=== PATIENT | male | born 1980 | race Caucasian/White ===

== ENCOUNTER 2016-10-17 13:32 | Emergency (ER) ==
[2016-10-17 13:33] VITALS: BMI 16.7
--- NOTE | 2016-10-17 13:41 | ED.PDOC ---
General ED Provider: Dr. LUKE MONTAGUE JR Chief Complaint: Sore Throat Stated Complaint: patient states he has had a sore throat. states in the morning it makes him cough up blood. states he looked in his throat and his uvula is swollen. states pain is worse in the morning. [ End ]3 days better after drinking liquids 97.7 93 16 95% 126/97 Time Seen by Physician: 13:39 Mode of Arrival: Walk-In Information Source: Patient Exam Limitations: No limitations Nursing and Triage Documentation Reviewed and Agree: No Review of Systems - Review Of Systems Constitutional: Reports: Malaise Eyes: Reports: No symptoms Ears, Nose, Mouth, Throat: Reports: Throat pain (posterior pharynx and uvula bright red) Respiratory: Reports: Cough Cardiac: Reports: No symptoms GI: Reports: No symptoms : Reports: No symptoms Musculoskeletal: Reports: No symptoms Skin: Reports: No symptoms Neurological: Reports: No symptoms Endocrine: Reports: No symptoms Hematologic/Lymphatic: Reports: No symptoms All Other Systems: Other Past Medical History - Past Medical History Previously Healthy: Yes Endocrine: Reports: None Cardiovascular: Reports: None Respiratory: Reports: Other ( CYSTIC FIBROSIS) Hematological: Reports: None Gastrointestinal: Reports: Pancreatitis Genitourinary: Reports: None Neuro/Psych: Reports: None Musculoskeletal: Reports: None Cancer: Reports: None Other Pertinent Past Medical History: CYSTIC FIBROSIS, PANCREATITIS - Surgical History General Surgical History: Reports: None, Cholecystectomy, Other (LEFT LUNG SURGERY ) - Family History Family History: Reports: None - Social History Smoking Status: Never smoker Hx Substance Use: No Alcohol Screening: Heavy Physical Exam - Physical Exam Appearance: Well-appearing, Thin Pain Distress: Moderate Eyes: PAULO, EOMI, Conjunctiva clear ENT: Ears normal, Nose normal, Erythema Neck: Supple Respiratory: Airway patent, Breath sounds equal, Breath sounds diminished, Rhonchi Cardiovascular: RRR, Pulses normal, No rub, No murmur GI/: Soft, Nontender, No masses, Bowel sounds normal, No Organomegaly Musculoskeletal: Normal strength, ROM intact, No edema, No calf tenderness Skin: Warm, Dry, Normal color Neurological: Sensation intact, Motor intact, Reflexes intact, Cranial nerves intact, Alert, Oriented Psychiatric: Affect appropriate, Mood appropriate Critical Care Note - Critical Care Note Total Time (mins): 0 Course - Course Vital Signs: Temp Pulse Resp BP Pulse Ox 10/17/16 13:33 97.7 F 93 H 16 126/97 H 95 Departure - Departure Time of Disposition: 13:50 Disposition: HOME SELF-CARE Discharge Problem: Sore throat symptom, Streptococcal sore throat Instructions: Pharyngitis (ED), Strep Throat (ED) Condition: Good Pt referred to PMD for follow-up: Yes Additional Instructions: Motrin for discomfort Robitussin AC for cough not relieved by Robitussin DM take all antibiotic if strep positive(strep is positive) Amoxil antibiotic recheck PMD one week may follow with [facility]- if coughing up blood will need chest xray when improved Prescriptions: Amoxicillin [Amoxil] 500 mg PO TID #30 capsule Allergies/Adverse Reactions: Allergies No Known Allergies Allergy (Verified 10/17/16 13:35) Home Medications: Ambulatory Orders Amoxicillin [Amoxil] 500 mg PO TID #30 capsule 10/17/16
[2016-10-17 13:43] VITALS: BP 126/97; TEMP 97.7
== END 2016-10-17 14:50 | disposition home or self-care (01) ==
LOC: ED 13:32
DX: J02.0 Streptococcal pharyngitis (principal); R05 Cough
CPT/HCPCS: 87880; 99283

== ENCOUNTER 2017-08-28 14:57 | Emergency (ER) | payer OTHER ==
[2017-08-28 15:00] VITALS: TEMP 98.7; BMI 17.4
--- NOTE | 2017-08-28 15:08 | ED.PDOC ---
General ED Provider: Dr. JOHAN GANN-ER Chief Complaint: Respiratory Complaint Stated Complaint: my sinuses are draining and im coughing it up Time Seen by Physician: 15:06 Mode of Arrival: Walk-In Information Source: Patient Exam Limitations: No limitations Primary Care Provider: SHAI LOMAS Nursing and Triage Documentation Reviewed and Agree: Yes Reviewed sepsis parameters & appropriate labs ordered?: Yes System Inflammatory Response Syndrome: Not Applicable Sepsis Protocol: For patient's 13 years and over: Temp is 96.8 and below OR 101 and greater Pulse >90 BPM Resp >20/minute Acutely Altered Mental Status Are patient's symptoms suggestive of a new infection, such as: -Pneumonia -Skin, Soft Tissue -Endocarditis -UTI -Bone, Joint Infection -Implantable Device -Acute Abdominal Infection -Wound Infection -Meningitis -Blood Stream Catheter Infection -Unknown Respiratory Complaint Exam - Respiratory Complaint/Exam Onset/Duration: 2 weeks Symptoms Are: Still present Timing: Constant Initial Severity: Mild Current Severity: Mild Location: Nose, Chest Character: Reports: Productive cough Aggravating: Reports: URI Alleviating: Reports: None Associated Signs and Symptoms: Reports: URI, Nasal congestion, Sinus discomfort. Denies: Rapid breathing, Dyspnea, Fever, Chills, Chest pain, Pleuritic chest pain, Wheezing, Hemoptysis, Dizziness, Calf pain, Calf swelling , Edema, Hoarseness, Vomiting, Sore throat, Weight loss, Decreased oral intake, Increased thirst, Increased appetite, Increased urination Related History: Reports: Similar episode Home Oxygen Use: No Recent Stress Test: No Recent Echo/LV Function: No Current Antibiotic Use: No Current Asthma Medication Use: No Inadequate Respiratory Effort: No Dysphagia Present: No Stridor Present: No JVD Present: No Accessory Muscle Use: No Retractions: Not Present Diminished Breath Sounds: No Sinus Tenderness: None Grunting Respirations: No Kussmaul Respirations: No Differential Diagnoses: Bronchitis, Sinusitis, URI Review of Systems - Review Of Systems Constitutional: Reports: No symptoms Eyes: Reports: No symptoms Ears, Nose, Mouth, Throat: Reports: Nose discharge Respiratory: Reports: Cough Cardiac: Reports: No symptoms GI: Reports: No symptoms : Reports: No symptoms Musculoskeletal: Reports: No symptoms Skin: Reports: No symptoms Neurological: Reports: No symptoms Endocrine: Reports: No symptoms Hematologic/Lymphatic: Reports: No symptoms All Other Systems: Reviewed and Negative Past Medical History - Past Medical History Previously Healthy: Yes Endocrine: Reports: None Cardiovascular: Reports: None Respiratory: Reports: Other ( CYSTIC FIBROSIS) Hematological: Reports: None Gastrointestinal: Reports: Pancreatitis Genitourinary: Reports: None Neuro/Psych: Reports: None Musculoskeletal: Reports: None Cancer: Reports: None Other Pertinent Past Medical History: CYSTIC FIBROSIS, PANCREATITIS - Surgical History General Surgical History: Reports: None, Cholecystectomy, Other (LEFT LUNG SURGERY ) - Family History Family History: Reports: None - Social History Smoking Status: Never smoker Hx Substance Use: No Alcohol Screening: Occasionally Physical Exam - Physical Exam Appearance: Well-appearing, No pain distress, Well-nourished Eyes: PAULO, EOMI, Conjunctiva clear ENT: Ears normal, Oropharynx normal, Rhinorrhea Neck: Supple Respiratory: Rhonchi Cardiovascular: RRR GI/: Soft, Nontender, No masses, Bowel sounds normal, No Organomegaly Musculoskeletal: Normal strength, ROM intact, No edema, No calf tenderness Skin: Warm, Dry, Normal color Neurological: Sensation intact, Motor intact, Reflexes intact, Cranial nerves intact, Alert, Oriented Psychiatric: Affect appropriate, Mood appropriate Critical Care Note - Critical Care Note Total Time (mins): 0 Course - Course Vital Signs: Temp Pulse Resp BP Pulse Ox 08/28/17 14:58 98.7 F 76 16 145/100 H 98 Departure - Departure Time of Disposition: 15:08 Disposition: HOME SELF-CARE Discharge Problem: Bronchitis Sinusitis Qualifiers: Sinusitis location: unspecified location Chronicity: acute Recurrence: non- recurrent Qualified Code(s): J01.90 - Acute sinusitis, unspecified Instructions: Acute Bronchitis (ED) Condition: Good Pt referred to PMD for follow-up: Yes IPMP verified?: No Additional Instructions: augmentin 875mg bid x 10 days --tessalon perles 200mg tid prn cough 30---f/u with pcp if not better in 72hrs==get bp rechecked Allergies/Adverse Reactions: Allergies No Known Allergies Allergy (Verified 08/28/17 15:00) Home Medications: Ambulatory Orders 1 [No Reported Medications] 08/28/17 Disposition Discussed With: Patient
[2017-08-28 15:18] VITALS: BP 142/80
== END 2017-08-28 15:16 | disposition home or self-care (01) ==
LOC: ED 14:57
DX: J40 Bronchitis, not specified as acute or chronic (principal); J01.90 Acute sinusitis, unspecified; E84.9 Cystic fibrosis, unspecified
CPT/HCPCS: 99282

== ENCOUNTER 2018-03-09 15:37 | Outpatient (CLI) ==
--- NOTE | 2018-03-09 16:20 | DI ---
EXAM: Three views of the right hand. History: Right hand pain. Findings: No acute fracture or dislocation. No abnormal calcifications or radiopaque foreign bodies . Joint spaces are preserved. Impression: No acute osseous abnormality
== END 2018-03-09 15:38 | disposition home or self-care (01) ==
LOC: RAD 15:37
PROVIDERS: ATTEND Physician Assistant
DX: M79.641 Pain in right hand (principal)

== ENCOUNTER 2018-11-16 10:34 | Observation (INO) ==
--- NOTE | 2018-11-16 11:39 | ED.PDOC ---
General ED Provider: Dr. JOHAN THOMSON Chief Complaint: Abdominal Pain Stated Complaint: CC: Severe Abdominal Pain. Hx Pancreatitis. Recently has been binge drinking of etoh. Has had progresive worsening pain over 2 days. States started drinking ETON 2 MO ago with excessive consumption (Beer and Vodka -1 pint daily). Had prev quit smoking cigarettes but has resumed smoking a pack of cigarettes per day for past 2 MO. Has been emotionally stressed as his Ex fiannce left with his childred 2 mo ago. Hx of alpha 1 antitripsin deficiency prev on treatment which he can not get due to insurance coverage. Time Seen by Physician: 11:30 Mode of Arrival: Walk-In Information Source: Patient Exam Limitations: Clinical condition Nursing and Triage Documentation Reviewed and Agree: Yes Does patient meet sepsis criteria?: No System Inflammatory Response Syndrome: Not Applicable Sepsis Protocol: For patient's 13 years and over: Temp is 96.8 and below OR 101 and greater Pulse >90 BPM Resp >20/minute Acutely Altered Mental Status Are patient's symptoms suggestive of a new infection, such as: -Pneumonia -Skin, Soft Tissue -Endocarditis -UTI -Bone, Joint Infection -Implantable Device -Acute Abdominal Infection -Wound Infection -Meningitis -Blood Stream Catheter Infection -Unknown GI Complaint Exam - Abdominal Pain Complaint/Exam Onset: Gradual Duration: 3 days Symptoms Are: Worse Timing: Constant (with paroxysmal worsening) Initial Severity: Moderate Current Severity: Severe Location of Pain: Diffuse Radiates To: Reports: Flank, LLQ, RLQ Character: Reports: Aching, Cramping Aggravating: Reports: Movement Alleviating: Reports: None Associated Signs and Symptoms: Reports: Diaphoresis, Back pain Related History: Reports: Similar episode AAA Risk Factors: Reports: None Cardiac Risk Factors: Reports: None Testicular Torsion Risk Factors: Reports: None Surgical Obstruction Risk Factors: Reports: None Related Surgical History: Reports: None Abdominal Findings: Present: Other (Tenderness/guarding) Review of Systems - Review Of Systems Constitutional: Reports: No symptoms Eyes: Reports: No symptoms Ears, Nose, Mouth, Throat: Reports: No symptoms Respiratory: Reports: No symptoms Cardiac: Reports: No symptoms GI: Reports: Abdomen distended, Abdominal pain : Reports: No symptoms Musculoskeletal: Reports: No symptoms Skin: Reports: No symptoms Neurological: Reports: No symptoms Endocrine: Reports: No symptoms Hematologic/Lymphatic: Reports: No symptoms All Other Systems: Reviewed and Negative Past Medical History - Past Medical History Previously Healthy: Yes Endocrine: Reports: None Cardiovascular: Reports: None Respiratory: Reports: Other ( CYSTIC FIBROSIS) Hematological: Reports: None Gastrointestinal: Reports: Pancreatitis Genitourinary: Reports: None Neuro/Psych: Reports: None Musculoskeletal: Reports: None Cancer: Reports: None Other Pertinent Past Medical History: CYSTIC FIBROSIS, PANCREATITIS - Surgical History General Surgical History: Reports: None, Cholecystectomy, Other (LEFT LUNG SURGERY ) - Family History Family History: Reports: None - Social History Smoking Status: Current every day smoker Hx Substance Use: No Alcohol Screening: Heavy - Immunizations Tetanus Shot up to Date: No (UNKNOWN) Physical Exam - Physical Exam Appearance: Ill-appearing, Thin Ill-appearing: Moderate Pain Distress: Severe Eyes: PAULO, EOMI, Conjunctiva clear ENT: Ears normal, Nose normal, Oropharynx normal Neck: Supple Respiratory: Airway patent, Breath sounds clear, Breath sounds equal, Respirations nonlabored Cardiovascular: RRR, Pulses normal, No rub, No murmur GI/: Soft, Tender, Bowel sounds hyperactive Musculoskeletal: Normal strength, ROM intact, No edema, No calf tenderness Skin: Warm, Dry, Normal color Neurological: Sensation intact, Motor intact, Reflexes intact, Cranial nerves intact, Alert, Oriented Psychiatric: Affect appropriate Interpretation - Radiology Interpretation Radiology Results: Positive Exam Interpreted: CT Scan (Abdomen/pelvis-peripancreatic inflamation and edema) - EKG Interpretation Time of EKG #1: 12:43 Rate: Normal ST Segment: Other (RBBB) Critical Care Note - Critical Care Note Total Time (mins): 120 Course - Course Hematology/Chemistry: 11/16/18 12:20 11/16/18 12:20 Orders, Labs, Meds: Lab Review 11/16/18 11/16/18 11/16/18 12:00 12:20 12:20 WBC 10.89 H RBC 4.90 Hgb 18.1 H Hct 49.3 MCV 100.6 H MCH 36.9 H MCHC 36.7 H RDW Coeff of Chris 13.8 Plt Count 221 Immature Gran % (Auto) 0.3 Neut % (Auto) 82.8 Lymph % (Auto) 10.7 [place] % (Auto) 4.9 Eos % (Auto) 0.8 Baso % (Auto) 0.5 Immature Gran # (Auto) 0.0 Neut # (Auto) 9.0 H Lymph # (Auto) 1.2 [place] # (Auto) 0.5 Eos # (Auto) 0.1 Baso # (Auto) 0.1 PT INR APTT Sodium 139.8 Potassium 3.61 Chloride 104.4 Carbon Dioxide 25.3 Anion Gap 13.71 BUN 2.4 L Creatinine 0.50 L Estimated GFR (MDRD) 184.00 BUN/Creatinine Ratio 4.80 Glucose 109.8 H Lactic Acid Calcium 9.01 Magnesium 1.82 Total Bilirubin 1.01 AST 74.8 H ALT 57.1 H Alkaline Phosphatase 126.3 H Total Creatine Kinase 90.1 Troponin I < 0.012 Total Protein 7.13 Albumin 4.17 Globulin 2.96 Albumin/Globulin Ratio 1.40 Amylase 222.4 H Lipase 2882.1 H Urine Color Urine Clarity Urine pH Ur Specific [place] Urine Protein Urine Glucose (UA) Urine Ketones Urine Blood Urine Nitrite Urine Bilirubin Urine Urobilinogen Ur Leukocyte Esterase Urine Opiates Screen Ur Oxycodone Screen Urine Methadone Screen Ur Propoxyphene Screen Ur Barbiturates Screen U Tricyclic Antidepress Ur Phencyclidine Scrn Ur Amphetamine Screen U Methamphetamines Scrn U Benzodiazepines Scrn Urine Cocaine Screen U Cannabinoids Screen Plasma/Serum Alcohol 11/16/18 11/16/18 11/16/18 12:20 12:20 12:23 WBC RBC Hgb Hct MCV MCH MCHC RDW Coeff of Chris Plt Count Immature Gran % (Auto) Neut % (Auto) Lymph % (Auto) [place] % (Auto) Eos % (Auto) Baso % (Auto) Immature Gran # (Auto) Neut # (Auto) Lymph # (Auto) [place] # (Auto) Eos # (Auto) Baso # (Auto) PT 10.7 INR 1.07 APTT 24.1 Sodium Potassium Chloride Carbon Dioxide Anion Gap BUN Creatinine Estimated GFR (MDRD) BUN/Creatinine Ratio Glucose Lactic Acid 1.41 Calcium Magnesium Total Bilirubin AST ALT Alkaline Phosphatase Total Creatine Kinase Troponin I Total Protein Albumin Globulin Albumin/Globulin Ratio Amylase Lipase Urine Color Urine Clarity Urine pH Ur Specific [place] Urine Protein Urine Glucose (UA) Urine Ketones Urine Blood Urine Nitrite Urine Bilirubin Urine Urobilinogen Ur Leukocyte Esterase Urine Opiates Screen Negative Ur Oxycodone Screen Negative Urine Methadone Screen Negative Ur Propoxyphene Screen Negative Ur Barbiturates Screen Negative U Tricyclic Antidepress Negative Ur Phencyclidine Scrn Negative Ur Amphetamine Screen Negative U Methamphetamines Scrn Negative U Benzodiazepines Scrn Positive Urine Cocaine Screen Negative U Cannabinoids Screen Positive Plasma/Serum Alcohol 11/16/18 11/16/18 12:23 14:35 WBC RBC Hgb Hct MCV MCH MCHC RDW Coeff of Chris Plt Count Immature Gran % (Auto) Neut % (Auto) Lymph % (Auto) [place] % (Auto) Eos % (Auto) Baso % (Auto) Immature Gran # (Auto) Neut # (Auto) Lymph # (Auto) [place] # (Auto) Eos # (Auto) Baso # (Auto) PT INR APTT Sodium Potassium Chloride Carbon Dioxide Anion Gap BUN Creatinine Estimated GFR (MDRD) BUN/Creatinine Ratio Glucose Lactic Acid Calcium Magnesium Total Bilirubin AST ALT Alkaline Phosphatase Total Creatine Kinase Troponin I Total Protein Albumin Globulin Albumin/Globulin Ratio Amylase Lipase Urine Color Yellow Urine Clarity Clear Urine pH 7.5 Ur Specific [place] 1.010 Urine Protein Negative Urine Glucose (UA) Negative Urine Ketones Negative Urine Blood Negative Urine Nitrite Negative Urine Bilirubin Negative Urine Urobilinogen 0.2 Ur Leukocyte Esterase Negative Urine Opiates Screen Ur Oxycodone Screen Urine Methadone Screen Ur Propoxyphene Screen Ur Barbiturates Screen U Tricyclic Antidepress Ur Phencyclidine Scrn Ur Amphetamine Screen U Methamphetamines Scrn U Benzodiazepines Scrn Urine Cocaine Screen U Cannabinoids Screen Plasma/Serum Alcohol < 10.0 Orders Category Date Time Status EKG-(ED ONLY) Stat CARDIO 11/16/18 12:36 Completed NPO REMINDER: IMAGING ONCE CARE 11/16/18 13:27 Completed IV [ED IV/MEDIPORT/POWERPORT] .ONCE EMERGENCY 11/16/18 11:50 Active ALCOHOL LEVEL [BLOOD ALCOHOL] Stat LAB 11/16/18 14:35 Completed AMYLASE Stat LAB 11/16/18 12:20 Completed BLOOD CULTURE (ED ONLY) Stat LAB 11/16/18 12:20 Received CBC W/ AUTO DIFF Stat LAB 11/16/18 12:20 Completed CMP [COMPREHENSIVE METABOLIC PANEL] Stat LAB 11/16/18 12:20 Completed CREATINE KINASE Stat LAB 11/16/18 12:20 Completed HEPATITIS PANEL, ACUTE Stat LAB 11/16/18 12:20 Received LACTIC ACID Stat LAB 11/16/18 12:20 Completed LIPASE Stat LAB 11/16/18 12:20 Completed MAGNESIUM Stat LAB 11/16/18 12:20 Completed PARTIAL THROMBOPLASTIN TIME Stat LAB 11/16/18 12:20 Completed PT WITH INR Stat LAB 11/16/18 12:20 Completed TROPONIN I Stat LAB 11/16/18 12:00 Completed UA [URINALYSIS C & S IF INDICATED] Stat LAB 11/16/18 12:23 Completed URINE DRUG SCREEN (RAPID FOR ED) [DRUG SCREEN, URINE, LAB 11/16/18 12:23 Completed RAPID] Stat 0.9 % Sodium Chloride [Saline Flush] MEDS 11/16/18 11:50 Active 1 syr IVF PRN PRN Hydromorphone HCl [Dilaudid 1 mg/ml Syringe] MEDS 11/16/18 12:02 Discontinued 1 mg IM ONCE STA Hydromorphone HCl [Dilaudid 1 mg/ml Syringe] MEDS 11/16/18 12:37 Discontinued 1 mg IVP ONCE STA Hydromorphone HCl [Dilaudid 1 mg/ml Syringe] MEDS 11/16/18 13:24 Discontinued 2 mg IVP ONCE STA Ondansetron HCl/Pf [Zofran 4 mg/2 ml] MEDS 11/16/18 12:02 Discontinued 4 mg IVP ONCE STA Ondansetron HCl/Pf [Zofran 4 mg/2 ml] MEDS 11/16/18 13:28 Discontinued 4 mg IVP ONCE STA Sodium Chloride 0.9% [Sodium Chloride] 1,000 ml MEDS 11/16/18 11:[address] ABDOMEN/PELVIS W CONTRAST Stat RADS 11/16/18 13:27 Completed Medications Generic Name Dose Route Start Last Admin Trade Name Freq PRN Reason Stop Dose Admin Sodium Chloride 1,000 mls @ 125 mls/hr 11/16/18 11:58 11/16/18 12:30 Sodium Chloride IV 11/16/18 19:57 125 mls/hr ONCE ONE Administration Sodium Chloride 1 syr 11/16/18 11:50 11/16/18 12:31 Saline Flush IVF 1 syr PRN PRN Administration To flush IV Discontinued Medications Generic Name Dose Route Start Last Admin Trade Name Freq PRN Reason Stop Dose Admin Hydromorphone HCl 1 mg 11/16/18 12:02 11/16/18 12:38 Dilaudid 1 Mg/Ml Syringe IM 11/16/18 12:03 Not Given ONCE STA Hydromorphone HCl 1 mg 11/16/18 12:37 11/16/18 12:38 Dilaudid 1 Mg/Ml Syringe IVP 11/16/18 12:38 1 mg ONCE STA Administration Hydromorphone HCl 2 mg 11/16/18 13:24 11/16/18 13:39 Dilaudid 1 Mg/Ml Syringe IVP 11/16/18 13:25 2 mg ONCE STA Administration Ondansetron HCl 4 mg 11/16/18 12:02 11/16/18 12:31 Zofran 4 Mg/2 Ml IVP 11/16/18 12:03 4 mg ONCE STA Administration Ondansetron HCl 4 mg 11/16/18 13:28 11/16/18 13:42 Zofran 4 Mg/2 Ml IVP 11/16/18 13:29 4 mg ONCE STA Administration Vital Signs: Temp Pulse Resp BP Pulse Ox 11/16/18 14:37 164/114 H 11/16/18 10:34 97.8 F 112 H 20 182/128 H 97 Departure - Departure Time of Disposition: 14:45 (disc with pt. /nakitaner) Disposition: PLACED OBSERVATION Discharge Problem: Acute pancreatitis, Chronic alcoholic liver disease, [id number] deficiency Condition: Stable Pt referred to PMD for follow-up: Yes IPMP verified?: No Additional Instructions: STOP ALCOHOL CONSUMPTION Discussed with Dr Myers who will accept for 23 hr observation Allergies/Adverse Reactions: Allergies No Known Allergies Allergy (Verified 08/28/17 15:00) Home Medications: Ambulatory Orders 1 [No Reported Medications] 08/28/17 Disposition Discussed With: Patient, Family, Other (Dr Ash who will accept patient for admission )
[2018-11-16] MEDS ORDERED: FUL-GLO OP STA (11:40)
[2018-11-16] MEDS ORDERED: SODIUM CHLORIDE 1,000 ML IV ONE (11:58)
[2018-11-16] MEDS ORDERED: ZOFRAN 4 MG/2 ML IVP STA ×2 (12:02→13:28)
[2018-11-16] MEDS ORDERED: DILAUDID 1 MG/ML SYRINGE IM STA (12:02)
[2018-11-16] MEDS ORDERED: DILAUDID 1 MG/ML SYRINGE IVP STA ×2 (12:37→13:24)
--- NOTE | 2018-11-16 14:28 | CT ---
EXAM: CT of the abdomen pelvis with contrast History: Abdominal pain. Comparison: CT abdomen pelvis 11/04/2015 Technique: Multiplanar CT images through the abdomen pelvis were obtained without the administration of IV contrast Findings: Motion artifact compromises image quality. Lung bases are clear. No acute osseous abnormalities. The liver is severely fatty. Status post cholecystectomy. There is moderate peripancreatic inflamma tion and edema of the pancreatic parenchyma. There is fluid seen tracking along the left anterior pa rarenal fascia and along the body of the stomach. No well-defined peripancreatic fluid collections a re seen at this time. No obvious renal masses are again fine within limitations of the motion are no hydronephrosis. Adrenal glands are unremarkable. No bowel obstruction. Colonic diverticulosis. T here is mild wall thickening involving the left side of the colon but is not well distended. The paul endix is not dilated or inflamed. Prostate is not enlarged. Bladder is mild to moderately distended . There is no bladder wall thickening. No pathologically enlarged lymph nodes. No abdominal aortic aneurysm. Impression: 1. Acute pancreatitis which is moderate in degree. No peripancreatic fluid collections identified a t this time. 2. Severe fatty infiltration of the liver. 3. Mild wall thickening involving the left side of the colon could be due to incomplete distension, reactive from pancreatitis or a mild colitis. 4. Colonic diverticulosis
[2018-11-16] MEDS ORDERED: DILAUDID 1 MG/ML SYRINGE IVP PRN (15:16)
[2018-11-16] MEDS ORDERED: ZOFRAN 4 MG/2 ML IVP PRN (15:16)
[2018-11-16] MEDS ORDERED: CATAPRES PO STA (15:50)
[2018-11-16 16:12] VITALS: BMI 16.0
--- NOTE | 2018-11-16 17:10 | PCM ---
- Chief Complaint Chief Complaint: Abdominal pain, pancreatitis. 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 Powell. Reported severe abdominal pain, hx of pancreatitis, recently binge drinking alcohol. Worsening pain , progressively over last 48 hours. Drinking ETOH 20 months ago 8 peer and 1 pint vodka daily. Resumed smoking at the same time. David has left with his 2 children 2 month ago. HIstory of ?Cystic fibrosis w/ u for this historically but then he has had children so he was told at one point likely not. He has suspected alpha 1 antitrypsin and notes he was treated for this per ED and then could not afford it. Recurrent pneumothorax historically. Symptoms worsening over 3 days, bilateral flank pain, bilateral LQ pain rated at 9-10/10. NO history of CHF. Severe pain diffuse pain. He has had pancreatitis before. No Vomiting, no diarrhea, mild nausea. Tenderness, guarding abdomen. Temp in Er measured at 97.8, 97.9 on floor. Pulse 112 in Er and 54 on the floor. BP 182/128 and 164/114. RR 20. O2 98% on RA. 5 ' 11" 117 lb. CBC showed wbc 10.89, RBC 4.90, hgb 18.1, plt 221. Coags pt 10.7, inf 1.07, aptt 24.1, Chemistry showed sodium 139.8, K+ 3.61, cl 104.4, BUN 2.4, Cr 0.5. Glucose 109.8. Lactic acid 1.41. AST 74.8, alt 57.1, calcium 9.01, seth 222.4, lip 2882.1. Urine showed normal, SG 1.010. UDS showed + benzo, + cannabinoids. He has plasma ETOH <10.0. I have requested LDH. I have also requested fluids to be hung w/ LR with MVI at 5ml/kg/hour. CT Abd pelvis with contrast: Acute pancreatitis moderate in degree, no peripanacreatic fluid collections at this time. Severe fatty liver, mild wall thickening involving left side ofthe colon ?distension reactive from pancreatitis or mild colitis. Colonic diverticulosis w/o mention of diverticulitis. Nurses triage assessment reviewed. In room SCU 3 patient with mother Patricia. No known history of elevated BP. Chronic Anxiety, chronic panic attack. No history of IV drug use. He has used marijuana daily for years. Stress is up, runs [employer], he is a very anxious barney. He has been using xanax off the street, has had numerous panic attacks. Self medicates w/ benzo and ETOH. He needs a little and has not had any in 1 week. Normally uses valium/klonopin. He has not used anything in at least 2 weeks. using CBD gummies helping with anxiety. Last ETOH last night. He has never had DT historically. Pain rated at 10/10 mid abdomen. No ETOH since last night, no tobacco since this am. He needs something for sleep, needs something for pain and he feels the dilaudid 2 q 3 is not enough. I do not want to use any NSAIDS for now. He has no history of HTN. He has used THC daily to eat as he is so small. He notes no desired intake of food. Started as a teen stopped for like 10 years and then started again. Panic prominently by history. He is tolerating water okay but sprite causes his stomach to hurt more. Nurse called 16:32 and left message for pain meds. I saw patient from 17:30-18:30. Mother in room. Bp checked again during encounter 180/102. Supposed to be on creon. NO insurance at present. - Review of Systems Constitutional: weakness, fatigue, loss of appetite. No: fever, chills, sweats , other Eyes: other (glasses). No: blurred vision, double-vision, discharge, itching, pain, redness, photophobia Ears: No: pain, bleeding, drainage, ringing, hearing loss, other Nose: No: bleeding, congestion, discharge, other Throat: No: pain, swelling, voice change, other Mouth: No: bleeding, pain, swelling, other Respiratory: No: cough, shortness of air, wheeze, hemoptysis, pain with breathing, other Cardiovascular: No: chest pain, left arm pain, diaphoresis, PND, orthopnea, edema, palpitations, syncope, other Gastrointestinal: abdominal pain, nausea. No: vomiting, diarrhea, melena, hematemesis, hematochezia, dysphagia, constipation Genitourinary: flank pain. No: dysuria, hematuria, frequency, incontinence, penile discharge, testicular pain, testicular swelling Neurological: headache, dizziness. No: seizure, numbness, weakness, speech difficulty, problems with walking, tremor, fainting, other Musculoskeletal: No: pain, swelling in joints, other Skin: other (numerous tattoo). No: rash, pruritus, lacerations, wounds, bruising Immunology: No: hives, itching, frequent infections, difficulty healing, other Hematology: No: easy bruising, easy bleeding, swollen glands, other Endocrine: No: weight changes, cold intolerance, heat intolerance, excessive thirst, excessive hunger, polyuria, other Psychiatric: depression, anxiety, sleeplessness Habits: tobacco use, substance use, alcohol use - Past Medical History Past Medical History: Alpha 1 antitrypsin deficiency, ?Cystic fibrosis, collapsed lung repeated, left lung surgery, s/p Cholecystectomy, Smoker, ETOH abuse, marijuana abus, benzo use. - Past Surgical History Past Surgical History: Cholecystectomy, lung surgery left, - Allergies Allergies/Adverse Reactions: Allergies Allergy/AdvReac Type Severity Reaction Status Date / Time No Known Allergies Allergy Verified 08/28/17 15:00 - Medications Medications: Medications Generic Name Dose Route Start Last Admin Trade Name Freq PRN Reason Stop Dose Admin Hydromorphone HCl 2 mg 11/16/18 15:16 Dilaudid 1 Mg/Ml Syringe IVP Q4HR PRN Abdominal Pain Sodium Chloride 1,000 mls @ 125 mls/hr 11/16/18 11:58 11/16/18 12:30 Sodium Chloride IV 11/16/18 19:57 125 mls/hr ONCE ONE Administration Ondansetron HCl 4 mg 11/16/18 15:16 Zofran 4 Mg/2 Ml IVP Q6H PRN Nausea and vomiting Sodium Chloride 1 syr 11/16/18 11:50 11/16/18 12:31 Saline Flush IVF 1 syr PRN PRN Administration To flush IV - Family History Past Family History: Lung cancer. Father on anticoagulants. Mother triple bypass, AVM brain aneursym., aortic aneursym, CAD. 2 children healthy. - Social History Past Social History: Runs [employer], numerous tattoo. LIves at home with roomate jyothi and 17 yo son. - Body Composition Height: 5 ft 11 in Weight: 115 lb 1.301 oz Body Mass Index (BMI): 16.0 - Physical Examination HEENT: Constitutional: Appearance-acute distress, pain response, Consistent with stated age. Orientation- Oriented x 3, alert Build and Nutrition-[Underweight] General- Patient is pleasant and cooperative with the interview and exam. Grabbing at stomach. Noting pain. Numerous tattoo. Integumentary: General-No rashes, ulcers or lesions. Palpation- Normal skin moisture/turgor. Skin is warm to touch, appropriate. Capillary refill is normal bilateral Upper and lower extremity. Numerous Tattoo. Head/Neck: Head- normocephalic and atraumatic. Neck- without visible/palpable lumps or pulsations. Palpation- No bony tenderness about head/neck along frontal, occipital, temporal, parietal, mastoid, jawline, zygoma, orbit or any other location. NO temporal artery tenderness. No TMJ tenderness. Neck Supple. Thyroid-No thyromegaly, no nodules Eye: Bilaterally PERRLA, EOMI. No discharge. Upper and lower eyelids are normal. Sclera/conjunctiva normal without discharge. Cornea is normal and clear. Lens is normal. Eyeball appears normal. No ciliary flushing, no conjunctival injection. ENMT: Pinna- normal without tenderness or erythema. External auditory canal Left- normal without erythema or discharge, no excessive cerumen. External auditory canal Right-normal without erythema or discharge, no excessive cerumen. TM left- Marin/pearly, normal light reflex and anatomy TM Right- Marin/ pearly, normal light reflex and anatomy Hearing Assessment-normal to conversational speech. Nose and sinus- No sinus tenderness along frontal/ maxillary region. External appearance normal and midline. Nares- bilateral quiet airflow, no discharge. Nasal mucosa- No bleeding noted and no ulcerations observed. [place], moist. Turbinates non boggy. Lips- normal color, moist without cracks/lesions Oral Cavity/Palate- hard/soft palate intact without lesions, oral mucosa pink and moist. Dentition assessed [poor] . Tongue normal midline. Oropharynx- no pharyngeal erythema, Uvula midline. No post nasal drip. No exudate. Salivary glands- Non tender to palpation CHEST/LUNG: Inspection- symmetric chest wall no pectus deformity. Normal effort , no distress, no use of accessory muscles. Palpation- nontender sternum, ribline. No abnormal pulsations. Auscultation- Breath sounds normal throughout all lung finnegan. Normal tracheal sounds, Normal bronchial sounds overlying sternum, Bronchovessicular sounds normal between scapulae posteriorly, Normal vessicular breath sounds heard throughout periphery. Lungs are clear today. Adventitious sounds- No wheezes, rales, rhonchi. CARDIOVASCULAR: Carotid artery- normal, no bruits or abnormal pulsations. Jugular vein- no pulsations. Palpation/Percussion- Normal PMI, no palpable thrill Auscultation- Regular rate and rhythm. No murmur noted in sitting, supine positions. Extremities- no digital clubbing, cyanosis, edema, increased warmth. ABDOMEN: Inspection- normal and no visible pulsations. Normal contour. Auscultation- Bowel sounds normal, no abdominal bruits. Palpation/Percussion- firm tender mid epigastric, mildly throughout, rebound tenderness, rigidity ( guarding), no jar tenderness, no masses. Liver-no hepatomegaly, Spleen no splenomegaly, Hernias- none. Rectal not examined. Peripheral Vascular: Upper extremity Left- Normal temperature with pink nailbeds and no ulcerations. Upper extremity Right- Normal temperature with pink nailbeds and no ulcerations. Lower extremity- Normal temperature with pink nailbeds and no ulcerations. DP pulses 2+ bilaterally. Pedal hair intact. Normal capillary refill. Edema- No edema. Musculoskeletal: Generalized-No generalized swelling or edema of extremities, no digital clubbing or cyanosis, neurovascularly intact all four extremities. Upper extremity- Symmetrical posture. No visible deformity. Normal sensation along medial and lateral upper extremity proximally and distally. NO tenderness overlying shoulder, lateral/medial epicondyle. Talent Development Manager 5/5 and strength 5/5 bilateral UE. Elbow palpated, no tenderness overlying olecranon. Normal supination, pronation to active/passive ROM and to resisted rotation. Bicep insertion/tricep insertion appear normal without obvious pathology. Rotator cuff evaluated and intact. Normal wrist ROM bilaterally. Normal hand movement, intrinsic muscles of hands normal. No tenderness to palpation of hands/wrists/ elbows. Lower extremity- Hip: Not tender to palpation, no pain, no swelling, edema or erythema of surrounding tissue, normal strength and tone. Normal appearing hip ROM bilaterally without pain. Knee: Knee ROM normal. No tenderness overlying trochanters, no tenderness about patella, quad tendon, patellar tendon. No tenderness at tibial tuberosity. Ankle: normal ROM not tender to palpation along medial/lateral malleolus. Foot: Normal movement of toes, no tenderness bilateral feet/toes. Normal foot type. Spine/Ribs- No deformities, masses or tenderness, no known fractures, normal strength, Normal ROM. Normal stability No tenderness along C/T/L spine. Normal appearing ROM about spine. Neurological: General- Moves all 4 extremities symmetrically. Symmetrical face and body posture. Cranial nerves- individually evaluated II-XII and intact. PERRLA, Normal EOMI, visual/special senses appear intact, Face is symmetrical and normal sensation/movement, normal tongue, normal strength/posture of neck musculature. Reflexes- intact with DTR 2+ patellar, Achilles, bicep, brachial, tricep. Ankle clonus normal with 2 beats. Strength- 5/5 bilateral UE and LE. Soft touch- intact bilateral UE and LE. Temperature sensation- intact bilateral UE and LE. Neuropsych: Oriented- Person, place, time. (AAOx3), Mood/affect- Anxious. Not diaphoretic. Able to articulate well. Speech-Normal speech, normal rate, normal tone, normal use of language, volume and coherence. Thought content- normal with ability to perform basic computations and apply abstract thought/reason. Associations- intact, no SI/HI, no hallucinations, delusions, obsessions. Judgment/insight- Appropriate. Memory-Recall intact, remote and recent memory intact. Knowledge- Age appropriate fund of knowledge, concentration and attention span normal. Lymphatic: Head/Neck- normal size and non tender to palpation. Axillary- normal size and non tender to palpation. Femoral and Inguinal- normal size and non tender to palpation. - Lab/Tests/Diagnostic Imaging Lab/Tests/Diagnostic Imaging: Laboratory Last Values WBC 10.89 K/ul (4.2-10.2) H 11/16/18 12:20 RBC 4.90 10^6/ul (4.70-6.10) 11/16/18 12:20 Hgb 18.1 g/dl (14.0-18.0) H 11/16/18 12:20 Hct 49.3 % (42.0-52.0) 11/16/18 12:20 MCV 100.6 fl (80.0-94.0) H 11/16/18 12:20 MCH 36.9 pg (27.0-31.0) H 11/16/18 12:20 MCHC 36.7 (31.8-35.4) H 11/16/18 12:20 RDW Coeff of Chris 13.8 % (11.6-14.8) 11/16/18 12:20 Plt Count 221 10^3/uL (140-440) 11/16/18 12:20 Immature Gran % (Auto) 0.3 % (0.0-5.0) 11/16/18 12:20 Neut % (Auto) 82.8 11/16/18 12:20 Lymph % (Auto) 10.7 (10.0-50.0) 11/16/18 12:20 Stanton % (Auto) 4.9 (0-10) 11/16/18 12:20 Eos % (Auto) 0.8 % (0.0-7.0) 11/16/18 12:20 Baso % (Auto) 0.5 % (0.0-3.0) 11/16/18 12:20 Immature Gran # (Auto) 0.0 (0.0-1.0) 11/16/18 12:20 Neut # (Auto) 9.0 K/ul (2.0-6.9) H 11/16/18 12:20 Lymph # (Auto) 1.2 K/uL (0.60-3.4) 11/16/18 12:20 Stanton # (Auto) 0.5 K/uL (0.4-2.0) 11/16/18 12:20 Eos # (Auto) 0.1 K/ul (0.0-0.7) 11/16/18 12:20 Baso # (Auto) 0.1 K/uL (0-0.2) 11/16/18 12:20 PT 10.7 SEC (9.3-11.0) 11/16/18 12:20 INR 1.07 SI (0.0-3.9) 11/16/18 12:20 APTT 24.1 SEC (23.9-40.0) 11/16/18 12:20 Sodium 139.8 mmol/L (134.5-145) 11/16/18 12:20 Potassium 3.61 mmol/L (3.5-5.1) 11/16/18 12:20 Chloride 104.4 mmol/L (98-107) 11/16/18 12:20 Carbon Dioxide 25.3 mmol/L (22-30.0) 11/16/18 12:20 Anion Gap 13.71 11/16/18 12:20 BUN 2.4 mg/dL (9-20) L 11/16/18 12:20 Creatinine 0.50 mg/dL (0.60-1.10) L 11/16/18 12:20 Estimated GFR (MDRD) 184.00 mL/min 11/16/18 12:20 BUN/Creatinine Ratio 4.80 11/16/18 12:20 Glucose 109.8 mg/dL (74-106) H 11/16/18 12:20 Lactic Acid 1.41 mmol/L (0.7-2.1) 11/16/18 12:20 Calcium 9.01 mg/dL (8.4-10.2) 11/16/18 12:20 Magnesium 1.82 mg/dL (1.6-2.3) 11/16/18 12:20 Total Bilirubin 1.01 mg/dL (0.2-1.3) 11/16/18 12:20 AST 74.8 U/L (17-59) H 11/16/18 12:20 ALT 57.1 U/L (0-50) H 11/16/18 12:20 Alkaline Phosphatase 126.3 U/L (38-126) H 11/16/18 12:20 Total Creatine Kinase 90.1 U/L (55-170) 11/16/18 12:20 Troponin I < 0.012 ng/ml (0.0000-0.120) 11/16/18 12:00 Total Protein 7.13 g/dL (6.3-8.2) 11/16/18 12:20 Albumin 4.17 g/dL (3.5-5.0) 11/16/18 12:20 Globulin 2.96 11/16/18 12:20 Albumin/Globulin Ratio 1.40 11/16/18 12:20 Amylase 222.4 U/L (30-110) H 11/16/18 12:20 Lipase 2882.1 U/L (23-300) H 11/16/18 12:20 Urine Color Yellow (YELLOW) 11/16/18 12:23 Urine Clarity Clear (CLEAR) 11/16/18 12:23 Urine pH 7.5 (5-9) 11/16/18 12:23 Ur Specific [place] 1.010 (1.005-1.030) 11/16/18 12:23 Urine Protein Negative (NEGATIVE) 11/16/18 12:23 Urine Glucose (UA) Negative (NEGATIVE) 11/16/18 12:23 Urine Ketones Negative (NEGATIVE) 11/16/18 12:23 Urine Blood Negative (NEGATIVE) 11/16/18 12:23 Urine Nitrite Negative (NEGATIVE) 11/16/18 12:23 Urine Bilirubin Negative (NEGATIVE) 11/16/18 12:23 Urine Urobilinogen 0.2 (0.2) 11/16/18 12:23 Ur Leukocyte Esterase Negative (NEGATIVE) 11/16/18 12:23 Urine Opiates Screen Negative (NEGATIVE) 11/16/18 12:23 Ur Oxycodone Screen Negative (NEGATIVE) 11/16/18 12:23 Urine Methadone Screen Negative (NEGATIVE) 11/16/18 12:23 Ur Propoxyphene Screen Negative (NEGATIVE) 11/16/18 12:23 Ur Barbiturates Screen Negative (NEGATIVE) 11/16/18 12:23 U Tricyclic Antidepress Negative (NEGATIVE) 11/16/18 12:23 Ur Phencyclidine Scrn Negative (NEGATIVE) 11/16/18 12:23 Ur Amphetamine Screen Negative (NEGATIVE) 11/16/18 12:23 U Methamphetamines Scrn Negative (NEGATIVE) 11/16/18 12:23 U Benzodiazepines Scrn Positive (NEGATIVE) 11/16/18 12:23 Urine Cocaine Screen Negative (NEGATIVE) 11/16/18 12:23 U Cannabinoids Screen Positive (NEGATIVE) 11/16/18 12:23 Plasma/Serum Alcohol < 10.0 mg/dL (0.0-50.0) 11/16/18 14:35 CT Abd pelvis with contrast: Acute pancreatitis moderate in degree, no peripanacreatic fluid collections at this time. Severe fatty liver, mild wall thickening involving left side ofthe colon ?distension reactive from pancreatitis or mild colitis. Colonic diverticulosis w/o mention of diverticulitis. - Assessment (1) Elevated blood pressure reading Status: Acute Code(s): R03.0 - ELEVATED BLOOD-PRESSURE READING, W/O DIAGNOSIS OF HTN SNOMED Code(s): 36438972 (2) Marijuana use Status: Acute Code(s): F12.90 - CANNABIS USE, UNSPECIFIED, UNCOMPLICATED SNOMED Code(s): 648633042 (3) History of benzodiazepine use Status: Acute Code(s): Z87.898 - PERSONAL HISTORY OF OTHER SPECIFIED CONDITIONS SNOMED Code(s): 351127905 (4) Acute pancreatitis Status: Acute Code(s): K85.9 - ACUTE PANCREATITIS, UNSPECIFIED * DO NOT USE * SNOMED Code(s): 979484442 (5) [id number] deficiency Status: Acute Code(s): E88.01 - [id number] DEFICIENCY SNOMED Code(s ): 32962823 (6) Chronic alcoholic liver disease Status: Acute Code(s): K70.9 - ALCOHOLIC LIVER DISEASE, UNSPECIFIED SNOMED Code(s): 177972160 (7) Elevated hemoglobin Status: Acute Code(s): D58.2 - OTHER HEMOGLOBINOPATHIES SNOMED Code(s): 585363820 - Plan Plan: Pancreatitis: Mortality typically 3-17%. Reviewed [employer] [employer]. Huntly criteria (WBC not >16, age not >55, glucose not >200, AST not >250, LDH ordered. Will reassess at 48 hours to evaluate for hct drop, bun increase, calcium decrease, arterial pO2, base deficit, and fluid needs over 48 hours. Current Frank severity rated moderate and he has suspected interstitial edematous acute pancreatitis. Modified Frank scoring system: 0 points for PaO2, renal, 0 points for cardiovascular. Not needing O2. He has no scores of >2. Thus supporting no e/o organ failure at this time. No elevated temp, HR is >90, RR not >20, WBC not >12 does not support SIRS criteria. Will treat with 5ml/kg/hr LR. He has no Hypotension but does have tachycardia. NO hypercalcemia. Fluid replacement has been shown to reduce morbidity and mortality. LR has been shown to reduce SIRS compared with NS. I also want the thiamine for ETOH abuse. With pain typical of the most concerning problem. He is currently getting dilaudid 2 q 3 hours which is equivalent to ~6 mg morphine per 1mg dilaudid. w/o n/v he can start to have diet restarted. I will allow dilaudid 2 q 3 at max. I will add some librium as his BP is likely high because of anxiety and withrawal from ETOH, withdrawl from benzo, withdrawal from Tobacco, pain in abdomen. PT/INR is okay. Liver enzymes mildly elevated. Awaiting hepatitis panel. - Admit observation. - O2 to maintain 92-98% - Vitals q shift - I+O - clear advance as tolerated - LR +MVI 260 ml/hour (5ml/kg/hour). Elevated hgb: hemoconcentration is possible. Repeat CBC in am. - CBC in am. ETOH ABUSE: CIWA SCALE evaluated and we will start symptom triggered therapy. Patient has been using benzos pretty regularly w/ ETOH. NO history of DT> Instead of symptom treat with score of CIWA >8, I will allow nurses to use librium 25mg orally TID PRN or valium 5mg IV BID PRN. - Will give him librium 25 TID PRN for now. THC abuse: Recommended to avoid using this/cessation encouraged. Underweight: Using THC for this. It will be legal in may. I do not condone the activity. Needs specialist to evaluate this further. ?CF, ?Alpha 1 antitrypsin. ?Chronic pancreatitis. No pseudocyst on CT> Elevated Blood Pressure. : Pain response suspected. I believe that the patient is having mix of pain response and some dehydration with hemoconcentration of his CBC/Hgb. Monitor BP for the next 6 hours with fluid hydration. - Consider norvasc 5mg to be added to bring BP down a little. Pain: Dilaudid 2 q 3 hours for now. Tobacco Use: Tobacco Cessation discussed today for 2 minutes. We reviewed lifestyle choices and discussed quitting. Ready to quit status discussed. The risks and hazards of continued tobacco abuse were discussed with the patient today and total tobacco cessation as recommended. It was clearly and unambiguously explained that continued tobacco usage will adversely affect overall morbidity and mortality of the patient. Patient was informed that tobacco use can lead to numerous cancers, worsening of cardiovascular and pulmonary systems and that lung damage is often permanent and irreversible. I advised the patient to inform me if any further assistance is requested, as we can offer counseling services, nicotine replacement inhaled, patch, lozenge, gum , or prescription medications to include Chantix or Wellbutrin for assistance. I will reassess the interest in tobacco cessation at the next and all subsequent visits. Diet: Clear advance as tolerated. DVT prophy: Lovenox. 40 subcutaneous. Dispo: Weight loss chronic pancreatitis. Needs to meet with GI. He needs chronic creon likely. Unknown etiolgy for cystic fibrosis, unknown etiology for alpha 1 antitrypsin. DIscussed with him today need to quit smoking, quit drinking. Patient is currently without insurance, which has hampered his ability to get his needed care OP w/ PCP. Discussed we would try to help him get set back up with medicaid during hospital stay, happy to refer to GI. Drug use needs to stop, tobacco cessation should be considered and total ETOH avoidance should be considered. He understood. >70 minutes spent on patient today.
[2018-11-16] MEDS: DILAUDID 1 MG/ML SYRINGE IVP PRN ×2 (19:33→23:22)
[2018-11-16] MEDS: NICODERM 21 MG TD SCH (19:37)
[2018-11-16] MEDS ORDERED: INFUVITE ADULT IV ONE (21:17)
[2018-11-16] MEDS: LACTATED RINGERS IV SCH (21:44)
[2018-11-16] MEDS: INFUVITE ADULT IV SCH (21:44)
[2018-11-16] MEDS: LIBRIUM PO PRN (21:49)
[2018-11-17] MEDS ORDERED: NORVASC PO STA (01:16)
[2018-11-17] MEDS ORDERED: INFUVITE ADULT IV ONE ×3 (02:07→17:04)
[2018-11-17] MEDS: INFUVITE ADULT IV SCH ×5 (02:12→17:07)
[2018-11-17] MEDS: LACTATED RINGERS IV SCH ×5 (02:12→17:07)
[2018-11-17] MEDS: DILAUDID 1 MG/ML SYRINGE IVP PRN ×5 (02:16→20:55)
[2018-11-17] MEDS ORDERED: CATAPRES PO STA (05:47)
[2018-11-17] MEDS ORDERED: ZESTORETIC 20-12.5 MG TAB PO STA (07:06)
--- NOTE | 2018-11-17 08:21 | PCM.PROG ---
Subjective: 38 yo WM pancreatitis, pain control, Elevated BP w/o history of HTN, Tobacco use , marijuana use, benzo use, ETOH abuse HD #2. Am labs showed WBC 9.94, hgb 16.1 , plt 163, hct 45.4. CMP with sodium 136.1, k+ 3.62, BUN 5, cr 0.44, Glucose 92.9. Ca2+ low at 8.12, added oral Ca/D 500 mg BID. Lipase incrased to 3552. Hep Panel negative. Major issues through the night with BP and with pain. Pain 10/10 despite dilaudid 2mg q 3hr IV. He is on fluids LR + MVI 260ml/hour ( 5ml/kg/hr) to reduce mortality risk. Monitoring HCT, LDH, monitoring renal function, glucose. BP did not come down with norvasc 5mg, with clonidine (few doses). He c/o anxiety. I added librium 25 TID PRN. He had negative CIWA. However,he has been using benzos and UDS benzo +. He needs rehab and AA to help with these problems. DIscussed at d/c to f/u with [facility]. Nursing notes pain 8-10/10 23:28 11/16/18. Vitals remains afebrile. The patient HR is stable 53-92. BP finally normalized 10am 11/17/18. Pain improved 50-60% better today. Tolerating fluids 100ml/hour and doing well. He notes he has no appetite, trying to drink water, sip juice/broth. I discussed to advance as tolerated. Offered nicotine patch, requested. Telemetry was reviewed and SA/ SR. I+O Reviewed and he had 6 voids documented for yesterday. Glucose 98/98/79/ 80/71/70/50. Lovenox for Dvt prophy. He has no other c/o. Librium helpe with anxiety. REVIEW OF SYMPTOMS: (Positives bolded) General: weight loss, fever, chills, night sweats, fatigue, appetite loss HEENT: blurry vision, eye pain, eye discharge, dry eyes, decreased vision, sore throat tinnitus, bloody nose, hearin gloss, sinus pain/pressure, ear pain/ pressure. Respiratory: shortness of breath, cough, hemoptysis, wheezing, pleurisy, Cardiovascular: chest pain, PND, palpitation, edema, orthopnea, syncope, swelling of extremities Gastro: Nausea, vomiting, diarrhea, hematemesis, abdominal pain, constipation Genito: hematuria, dysuria, glycosuria, hesitancy, frequency, incontinence Musckelo: Arthralgia, myalgia, muscle weakness, joint swelling, NSAID use Skin: rash, pruritis, sores, nail changes, skin thickening, change in wart/mole , itching, rash, new lesions, pruritus, nail changes Neuro: Migraine, numbness, ataxia, tremor, vertigo, weakness, memory loss, Irritability, dizziness Endocrine: excessive thirst, polyuria, cold intolerance, heat intolerance, goiter Psychiatric: depression, anxiety, anti-depressants, alcohol abuse, drug abuse, insomnia, change in sleep pattern and mood changes Heme/lymph: easy bruising, bleeding gums, blood clots, swollen glands, lymphedema, Allergic/immune: allergic rhinitis, hay fever, asthma, hives Objective: Vital Signs - 24 hr 11/16/18 11/16/18 11/17/18 22:00 23:54 00:45 Temperature 98.2 F Pulse Rate 68 60 58 L Respiratory 18 15 14 Rate Blood Pressure 148/108 H 144/107 H 159/102 H O2 Sat by Pulse 97 Oximetry 11/17/18 11/17/18 11/17/18 01:17 02:00 04:46 Temperature 98.5 F 98.3 F Pulse Rate 67 61 68 Respiratory 14 16 14 Rate Blood Pressure 160/99 H 167/105 H 160/106 H O2 Sat by Pulse 98 98 Oximetry 11/17/18 11/17/18 11/17/18 05:46 07:35 07:39 Temperature Pulse Rate Respiratory Rate Blood Pressure 174/112 H 154/90 H 147/102 H O2 Sat by Pulse Oximetry 11/17/18 11/17/18 11/17/18 08:00 10:00 11:00 Temperature 97.6 F Pulse Rate 80 Respiratory 18 19 Rate Blood Pressure 109/68 101/68 O2 Sat by Pulse 97 Oximetry 11/17/18 11/17/18 11/17/18 12:00 13:00 14:00 Temperature 98.1 F Pulse Rate 92 H Respiratory 21 Rate Blood Pressure 105/69 115/86 125/75 O2 Sat by Pulse 97 Oximetry 11/17/18 18:00 Temperature 98.1 F Pulse Rate 85 Respiratory 19 Rate Blood Pressure 135/89 O2 Sat by Pulse 99 Oximetry Laboratory Last Values WBC 9.94 K/ul (4.2-10.2) 11/17/18 05:00 RBC 4.46 10^6/ul (4.70-6.10) L 11/17/18 05:00 Hgb 16.1 g/dl (14.0-18.0) 11/17/18 05:00 Hct 45.4 % (42.0-52.0) 11/17/18 05:00 MCV 101.8 fl (80.0-94.0) H 11/17/18 05:00 MCH 36.1 pg (27.0-31.0) H 11/17/18 05:00 MCHC 35.5 (31.8-35.4) H 11/17/18 05:00 RDW Coeff of Chris 13.8 % (11.6-14.8) 11/17/18 05:00 Plt Count 163 10^3/uL (140-440) 11/17/18 05:00 Immature Gran % (Auto) 0.3 % (0.0-5.0) 11/17/18 05:00 Neut % (Auto) 83.1 11/17/18 05:00 Lymph % (Auto) 10.8 (10.0-50.0) 11/17/18 05:00 Reeves % (Auto) 3.9 (0-10) 11/17/18 05:00 Eos % (Auto) 1.5 % (0.0-7.0) 11/17/18 05:00 Baso % (Auto) 0.4 % (0.0-3.0) 11/17/18 05:00 Immature Gran # (Auto) 0.0 (0.0-1.0) 11/17/18 05:00 Neut # (Auto) 8.3 K/ul (2.0-6.9) H 11/17/18 05:00 Lymph # (Auto) 1.1 K/uL (0.60-3.4) 11/17/18 05:00 Reeves # (Auto) 0.4 K/uL (0.4-2.0) 11/17/18 05:00 Eos # (Auto) 0.2 K/ul (0.0-0.7) 11/17/18 05:00 Baso # (Auto) 0.0 K/uL (0-0.2) 11/17/18 05:00 PT 10.7 SEC (9.3-11.0) 11/16/18 12:20 INR 1.07 SI (0.0-3.9) 11/16/18 12:20 APTT 24.1 SEC (23.9-40.0) 11/16/18 12:20 Sodium 136.1 mmol/L (134.5-145) 11/17/18 05:00 Potassium 3.62 mmol/L (3.5-5.1) 11/17/18 05:00 Chloride 101.9 mmol/L (98-107) 11/17/18 05:00 Carbon Dioxide 29.7 mmol/L (22-30.0) 11/17/18 05:00 Anion Gap 8.12 11/17/18 05:00 BUN 5.0 mg/dL (9-20) L 11/17/18 05:00 Creatinine 0.44 mg/dL (0.60-1.10) L 11/17/18 05:00 Estimated GFR (MDRD) 213.00 mL/min 11/17/18 05:00 BUN/Creatinine Ratio 11.36 11/17/18 05:00 Glucose 92.9 mg/dL (74-106) 11/17/18 05:00 Lactic Acid 1.41 mmol/L (0.7-2.1) 11/16/18 12:20 Calcium 8.12 mg/dL (8.4-10.2) L 11/17/18 05:00 Magnesium 1.82 mg/dL (1.6-2.3) 11/16/18 12:20 Total Bilirubin 1.72 mg/dL (0.2-1.3) H 11/17/18 05:00 AST 47.4 U/L (17-59) D 11/17/18 05:00 ALT 38.1 U/L (0-50) 11/17/18 05:00 Alkaline Phosphatase 98.4 U/L (38-126) D 11/17/18 05:00 Total Creatine Kinase 90.1 U/L (55-170) 11/16/18 12:20 Troponin I < 0.012 ng/ml (0.0000-0.120) 11/16/18 12:00 Total Protein 5.28 g/dL (6.3-8.2) L 11/17/18 05:00 Albumin 2.94 g/dL (3.5-5.0) L 11/17/18 05:00 Globulin 2.34 11/17/18 05:00 Albumin/Globulin Ratio 1.25 11/17/18 05:00 Amylase 222.4 U/L (30-110) H 11/16/18 12:20 Lipase 3552.0 U/L (23-300) H 11/17/18 05:00 Urine Color Yellow (YELLOW) 11/16/18 12:23 Urine Clarity Clear (CLEAR) 11/16/18 12:23 Urine pH 7.5 (5-9) 11/16/18 12:23 Ur Specific [place] 1.010 (1.005-1.030) 11/16/18 12:23 Urine Protein Negative (NEGATIVE) 11/16/18 12:23 Urine Glucose (UA) Negative (NEGATIVE) 11/16/18 12:23 Urine Ketones Negative (NEGATIVE) 11/16/18 12:23 Urine Blood Negative (NEGATIVE) 11/16/18 12:23 Urine Nitrite Negative (NEGATIVE) 11/16/18 12:23 Urine Bilirubin Negative (NEGATIVE) 11/16/18 12:23 Urine Urobilinogen 0.2 (0.2) 11/16/18 12:23 Ur Leukocyte Esterase Negative (NEGATIVE) 11/16/18 12:23 Urine Opiates Screen Negative (NEGATIVE) 11/16/18 12:23 Ur Oxycodone Screen Negative (NEGATIVE) 11/16/18 12:23 Urine Methadone Screen Negative (NEGATIVE) 11/16/18 12:23 Ur Propoxyphene Screen Negative (NEGATIVE) 11/16/18 12:23 Ur Barbiturates Screen Negative (NEGATIVE) 11/16/18 12:23 U Tricyclic Antidepress Negative (NEGATIVE) 11/16/18 12:23 Ur Phencyclidine Scrn Negative (NEGATIVE) 11/16/18 12:23 Ur Amphetamine Screen Negative (NEGATIVE) 11/16/18 12:23 U Methamphetamines Scrn Negative (NEGATIVE) 11/16/18 12:23 U Benzodiazepines Scrn Positive (NEGATIVE) 11/16/18 12:23 Urine Cocaine Screen Negative (NEGATIVE) 11/16/18 12:23 U Cannabinoids Screen Positive (NEGATIVE) 11/16/18 12:23 Plasma/Serum Alcohol < 10.0 mg/dL (0.0-50.0) 11/16/18 14:35 Hepatitis A IgM Ab Negative (Negative) 11/16/18 12:20 Hep Bs Antigen Negative (Negative) 11/16/18 12:20 Hep B Core IgM Ab Negative (Negative) 11/16/18 12:20 Hep C Ab Signal/Cutoff < 0.1 s/co ratio (0.0-0.9) 11/16/18 12:20 (1) Elevated blood pressure reading Status: Acute Code(s): R03.0 - ELEVATED BLOOD-PRESSURE READING, W/O DIAGNOSIS OF HTN SNOMED Code(s): 94695826 (2) Marijuana use Status: Acute Code(s): F12.90 - CANNABIS USE, UNSPECIFIED, UNCOMPLICATED SNOMED Code(s): 350981307 (3) History of benzodiazepine use Status: Acute Code(s): Z87.898 - PERSONAL HISTORY OF OTHER SPECIFIED CONDITIONS SNOMED Code(s): 691101879 (4) Acute pancreatitis Status: Acute Code(s): K85.9 - ACUTE PANCREATITIS, UNSPECIFIED * DO NOT USE * SNOMED Code(s): 375640069 (5) Vfwii-2-esfjzrzasde deficiency Status: Acute Code(s): E88.01 - [id number] DEFICIENCY SNOMED Code(s ): 78528365 (6) Chronic alcoholic liver disease Status: Acute Code(s): K70.9 - ALCOHOLIC LIVER DISEASE, UNSPECIFIED SNOMED Code(s): 042837412 (7) Elevated hemoglobin Status: Acute Code(s): D58.2 - OTHER HEMOGLOBINOPATHIES SNOMED Code(s): 532062099 (8) Hypocalcemia Status: Acute Code(s): E83.51 - HYPOCALCEMIA SNOMED Code(s): 3466073 Plan: Pancreatitis: Mortality typically 3-17%. Still too early for rocio. We will re-establish this tomorrow after we see how much fluid he is getting and we see about his LDH/HCT etc. So far Haugan criteria (WBC not >16, age not >55, glucose not >200, AST not >250, LDH ordered. Admit Frank severity rated moderate and he had suspected interstitial edematous acute pancreatitis. Still w /o e/o organ failure at this time. No elevated temp, HR is fine at >90, RR not > 20, WBC not >12 does not support SIRS criteria. Dropped fluids down to 100ml/ hour. based on continued pain/HTN, I will change from obs to admit. Tachycardia improving. NO hypercalcemia. Fluid replacement has been shown to reduce morbidity and mortality. As noted at admit, LR has been shown to reduce SIRS compared with NS. Continue dilaudid 2 q 3 hours for now. Hepatitis panel negative. Reassess tomorrow. Plan d/c 11/19/18. - Change Admit observation to Inpatient - O2 to maintain 92-98% - Vitals q shift - I+O - clear diet advance as tolerated - LR +MVI 100ml/hour (5ml/kg/hour). (DOSE CHANGE) Elevated hgb: Resolved. Dropped from 18.1 to 16.1. Continue to monitor. - CBC in am. ETOH ABUSE: CIWA SCALE evaluated and we will continue symptom triggered therapy. Patient has been using benzos pretty regularly w/ ETOH. NO history of DT> Instead of symptom treat with score of CIWA >8, I will allow nurses to use librium 25mg orally TID PRN or valium 5mg IV BID PRN. - Will continue him librium 25 TID PRN for now. THC abuse: Recommended to avoid using this/cessation encouraged. As above. Underweight: He noted that he has been using THC for this. Discussed again today avoidance. Still Needs specialist at D/c to evaluate this further. ?CF, ? Alpha 1 antitrypsin. ?Chronic pancreatitis. No pseudocyst on CT> Hypocalcemia: Add calcium+D 500 BID. Repeat CMP tomorrow. - CMP tomorrow am. Elevated Blood Pressure: Pain response suspected. dilaudid 2mg q 3 hours. Librium to make sure this is not BZO withdrawal. I have changed him to 100ml/ hour fluids LR+MVI and I have added zestoretic 18/05.5. Monitor Ca++ and monitor Na+ and K+. I believe that the patient is having mix of pain response and some dehydration with hemoconcentration of his CBC/Hgb. Monitor BP for the next 6 hours with fluid hydration. -Zestoretic 20/12.5. 1 daily. Pain: Dilaudid 2 q 3 hours for now. Tobacco Use: Tobacco Cessation discussed today for 2 minutes. We reviewed lifestyle choices and discussed quitting. Ready to quit status discussed. The risks and hazards of continued tobacco abuse were discussed with the patient today and total tobacco cessation as recommended. It was clearly and unambiguously explained that continued tobacco usage will adversely affect overall morbidity and mortality of the patient. Patient was informed that tobacco use can lead to numerous cancers, worsening of cardiovascular and pulmonary systems and that lung damage is often permanent and irreversible. I advised the patient to inform me if any further assistance is requested, as we can offer counseling services, nicotine replacement inhaled, patch, lozenge, gum , or prescription medications to include Chantix or Wellbutrin for assistance. I will reassess the interest in tobacco cessation at the next and all subsequent visits. Diet: Clear advance as tolerated. DVT prophy: Lovenox. 40 subcutaneous. Dispo: Weight loss chronic pancreatitis. Needs to meet with GI. He needs chronic creon likely. Unknown if he actually has cystic fibrosis, or alpha 1 antitrypsin. DIscussed with him today need to quit smoking, quit drinking. Patient is currently without insurance, which has hampered his ability to get his needed care OP w/ PCP. Discussed we would try to help him get set back up with medicaid during hospital stay, happy to refer to GI. Drug use needs to stop, tobacco cessation should be considered and total ETOH avoidance should be considered. BP is improving, we will continue to use zestoretic. Monitor sodium /potassium/calcium. I discussed plan for discharge in ~48-72 hours if he continues to improve. He understood. >35 minutes spent on patient today. Today goal is fluid hydration, advance diet as tolerated, work on controlling BP.
[2018-11-17] MEDS: CALCIUM 500 + VIT D 200 MG TABLET PO SCH ×2 (08:46→20:52)
[2018-11-17] MEDS: NICODERM 21 MG TD SCH (08:47)
[2018-11-17] MEDS: LOVENOX SUBCUT SCH (08:48)
[2018-11-17] MEDS: LIBRIUM PO PRN (08:48)
[2018-11-18] MEDS: DILAUDID 1 MG/ML SYRINGE IVP PRN ×2 (00:27→04:58)
[2018-11-18] MEDS: LIBRIUM PO PRN (00:31)
[2018-11-18] MEDS ORDERED: INFUVITE ADULT IV ONE (02:22)
[2018-11-18] MEDS: LACTATED RINGERS IV SCH (02:27)
[2018-11-18] MEDS: INFUVITE ADULT IV SCH (02:27)
[2018-11-18 05:05] VITALS: BP 149/86; TEMP 98.4
[2018-11-18] MEDS ORDERED: ZESTORETIC 20-12.5 MG TAB PO SCH (09:00)
[2018-11-18] MEDS: CALCIUM 500 + VIT D 200 MG TABLET PO SCH (09:46)
[2018-11-18] MEDS: NICODERM 21 MG TD SCH (09:46)
[2018-11-18] MEDS: LOVENOX SUBCUT SCH (09:46)
--- NOTE | 2018-11-18 10:01 | PCM.DC ---
Final Diagnosis: Acute pancreatitis (Acute) Zhxfs-1-agnqtwijwhs deficiency (Chronic) Chronic alcoholic liver disease (Chronic) Elevated blood pressure reading (Stable/acute) Elevated hemoglobin (Resolved) History of benzodiazepine use (Acute) Hypocalcemia (Acute) Marijuana use (Acute) (1) Elevated blood pressure reading Status: Acute Code(s): R03.0 - ELEVATED BLOOD-PRESSURE READING, W/O DIAGNOSIS OF HTN SNOMED Code(s): 00686033 (2) Marijuana use Status: Acute Code(s): F12.90 - CANNABIS USE, UNSPECIFIED, UNCOMPLICATED SNOMED Code(s): 055964492 (3) History of benzodiazepine use Status: Acute Code(s): Z87.898 - PERSONAL HISTORY OF OTHER SPECIFIED CONDITIONS SNOMED Code(s): 246363283 (4) Acute pancreatitis Status: Acute Code(s): K85.9 - ACUTE PANCREATITIS, UNSPECIFIED * DO NOT USE * SNOMED Code(s): 088434694 (5) Kujlq-7-uewolxwnudw deficiency Status: Acute Code(s): E88.01 - JRNJG-2-SNAKGHLMARM DEFICIENCY SNOMED Code(s ): 07565857 (6) Chronic alcoholic liver disease Status: Acute Code(s): K70.9 - ALCOHOLIC LIVER DISEASE, UNSPECIFIED SNOMED Code(s): 357919632 (7) Elevated hemoglobin Status: Acute Code(s): D58.2 - OTHER HEMOGLOBINOPATHIES SNOMED Code(s): 942528615 (8) Hypocalcemia Status: Acute Code(s): E83.51 - HYPOCALCEMIA SNOMED Code(s): 6589063 Reason for Hospitalization: 1. Pancreatitis/Abdominal Pain: ETOH induced 2. Elevated BP: No history of HTN. 3. Marijuana Abuse: Cessation encouraged. 4. Leukocytosis: Resolved 5. Underweight: Poor diet. Prognosis at Discharge: Guarded. Patient has no insurance, he has been without meds a long time. He needs to meet with counselor and get set up with AA. I discussed complete avoidance of ETOH, he noted understanding. Pain control d/w patient. Benzos d/ w patient, opiates d/w patient. I have set him up with appt with me this coming . Would like to refer to GI, get back on creon. Condition at Discharge: Improved, Abdominal Pain: Abd pain is less, tolerating PO liquids, broth. Lipase has reduced from 3552 to 1447.3. Hep panel negative. HTN is stable controlled. Nicotine Abuse: On patches Calcium: Improving Hypoglycemia: stable. Medications at Discharge: Ambulatory Orders Medication Instructions Recorded Calcium Carbonate/Vitamin D3 1 each PO BID 30 Days #60 tablet 11/18/18 [Calcium 500 + Vit D 200 mg Tablet] Chlordiazepoxide HCl [Librium] 25 mg PO BID #14 capsule 11/18/18 Lisinopril/Hydrochlorothiazide 1 tab PO DAILY 30 Days #30 tablet 11/18/18 [Zestoretic 20-12.5 mg Tab] Nicotine 21 mg [Nicoderm 21 mg] 1 patch TD DAILY 14 Days #14 11/18/18 patch.td24 Oxycodone-Acetaminophe 7.5-325 0.5 - 1 tab PO TID PRN #21 tablet 11/18/18 [Percocet 7.5-325] Vitamin B-1 [Thiamine] 100 mg PO DAILY 30 Days #30 tablet 11/18/18 Lab/Diagnostics: Laboratory Last Values WBC 7.61 K/ul (4.2-10.2) 11/18/18 05:00 RBC 4.11 10^6/ul (4.70-6.10) L 11/18/18 05:00 Hgb 14.8 g/dl (14.0-18.0) 11/18/18 05:00 Hct 42.7 % (42.0-52.0) 11/18/18 05:00 MCV 103.9 fl (80.0-94.0) H 11/18/18 05:00 MCH 36.0 pg (27.0-31.0) H 11/18/18 05:00 MCHC 34.7 (31.8-35.4) 11/18/18 05:00 RDW Coeff of Chris 13.7 % (11.6-14.8) 11/18/18 05:00 Plt Count 152 10^3/uL (140-440) 11/18/18 05:00 Immature Gran % (Auto) 0.4 % (0.0-5.0) 11/18/18 05:00 Neut % (Auto) 66.9 11/18/18 05:00 Lymph % (Auto) 22.9 (10.0-50.0) 11/18/18 05:00 [place] % (Auto) 6.2 (0-10) 11/18/18 05:00 Eos % (Auto) 2.8 % (0.0-7.0) 11/18/18 05:00 Baso % (Auto) 0.8 % (0.0-3.0) 11/18/18 05:00 Immature Gran # (Auto) 0.0 (0.0-1.0) 11/18/18 05:00 Neut # (Auto) 5.1 K/ul (2.0-6.9) 11/18/18 05:00 Lymph # (Auto) 1.7 K/uL (0.60-3.4) 11/18/18 05:00 [place] # (Auto) 0.5 K/uL (0.4-2.0) 11/18/18 05:00 Eos # (Auto) 0.2 K/ul (0.0-0.7) 11/18/18 05:00 Baso # (Auto) 0.1 K/uL (0-0.2) 11/18/18 05:00 PT 10.7 SEC (9.3-11.0) 11/16/18 12:20 INR 1.07 SI (0.0-3.9) 11/16/18 12:20 APTT 24.1 SEC (23.9-40.0) 11/16/18 12:20 Sodium 138.2 mmol/L (134.5-145) 11/18/18 05:00 Potassium 3.51 mmol/L (3.5-5.1) 11/18/18 05:00 Chloride 97.7 mmol/L (98-107) L 11/18/18 05:00 Carbon Dioxide 32.2 mmol/L (22-30.0) H 11/18/18 05:00 Anion Gap 11.81 11/18/18 05:00 BUN 6.0 mg/dL (9-20) L 11/18/18 05:00 Creatinine 0.50 mg/dL (0.60-1.10) L 11/18/18 05:00 Estimated GFR (MDRD) 184.00 mL/min 11/18/18 05:00 BUN/Creatinine Ratio 12.00 11/18/18 05:00 Glucose 63.1 mg/dL (74-106) L 11/18/18 05:00 Lactic Acid 1.41 mmol/L (0.7-2.1) 11/16/18 12:20 Calcium 8.28 mg/dL (8.4-10.2) L 11/18/18 05:00 Magnesium 1.82 mg/dL (1.6-2.3) 11/16/18 12:20 Total Bilirubin 1.64 mg/dL (0.2-1.3) H 11/18/18 05:00 AST 44.7 U/L (17-59) 11/18/18 05:00 ALT 33.5 U/L (0-50) 11/18/18 05:00 Alkaline Phosphatase 91.1 U/L (38-126) 11/18/18 05:00 Lactate Dehydrogenase 267 IU/L (121-224) H 11/16/18 17:36 Total Creatine Kinase 90.1 U/L (55-170) 11/16/18 12:20 Troponin I < 0.012 ng/ml (0.0000-0.120) 11/16/18 12:00 Total Protein 5.36 g/dL (6.3-8.2) L 11/18/18 05:00 Albumin 2.90 g/dL (3.5-5.0) L 11/18/18 05:00 Globulin 2.46 11/18/18 05:00 Albumin/Globulin Ratio 1.17 11/18/18 05:00 Amylase 222.4 U/L (30-110) H 11/16/18 12:20 Lipase 1447.3 U/L (23-300) H 11/18/18 05:00 Urine Color Yellow (YELLOW) 11/16/18 12:23 Urine Clarity Clear (CLEAR) 11/16/18 12:23 Urine pH 7.5 (5-9) 11/16/18 12:23 Ur Specific [place] 1.010 (1.005-1.030) 11/16/18 12:23 Urine Protein Negative (NEGATIVE) 11/16/18 12:23 Urine Glucose (UA) Negative (NEGATIVE) 11/16/18 12:23 Urine Ketones Negative (NEGATIVE) 11/16/18 12:23 Urine Blood Negative (NEGATIVE) 11/16/18 12:23 Urine Nitrite Negative (NEGATIVE) 11/16/18 12:23 Urine Bilirubin Negative (NEGATIVE) 11/16/18 12:23 Urine Urobilinogen 0.2 (0.2) 11/16/18 12:23 Ur Leukocyte Esterase Negative (NEGATIVE) 11/16/18 12:23 Urine Opiates Screen Negative (NEGATIVE) 11/16/18 12:23 Ur Oxycodone Screen Negative (NEGATIVE) 11/16/18 12:23 Urine Methadone Screen Negative (NEGATIVE) 11/16/18 12:23 Ur Propoxyphene Screen Negative (NEGATIVE) 11/16/18 12:23 Ur Barbiturates Screen Negative (NEGATIVE) 11/16/18 12:23 U Tricyclic Antidepress Negative (NEGATIVE) 11/16/18 12:23 Ur Phencyclidine Scrn Negative (NEGATIVE) 11/16/18 12:23 Ur Amphetamine Screen Negative (NEGATIVE) 11/16/18 12:23 U Methamphetamines Scrn Negative (NEGATIVE) 11/16/18 12:23 U Benzodiazepines Scrn Positive (NEGATIVE) 11/16/18 12:23 Urine Cocaine Screen Negative (NEGATIVE) 11/16/18 12:23 U Cannabinoids Screen Positive (NEGATIVE) 11/16/18 12:23 Plasma/Serum Alcohol < 10.0 mg/dL (0.0-50.0) 11/16/18 14:35 Hepatitis A IgM Ab Negative (Negative) 11/16/18 12:20 Hep Bs Antigen Negative (Negative) 11/16/18 12:20 Hep B Core IgM Ab Negative (Negative) 11/16/18 12:20 Hep C Ab Signal/Cutoff < 0.1 s/co ratio (0.0-0.9) 11/16/18 12:20 CT Abd pelvis with contrast: Acute pancreatitis moderate in degree, no peripanacreatic fluid collections at this time. Severe fatty liver, mild wall thickening involving left side ofthe colon ?distension reactive from pancreatitis or mild colitis. Colonic diverticulosis w/o mention of diverticulitis. Education Provided to Patient and Family: 1. Smoking Cessation 2. ETOH avoidance 3. Anxiety reduction 4. HTN education (zestoretic) 5. Pancreatitic diet/acute pancreatitis 6. Benzo 7. Opiate Follow-ups: 11/23/[address] Ash Disposition: HOME SELF-CARE Hospital Course: 38 yo CM PCP Kimberly Tadeo presented to ED 11/16/[address] Powell. Reported severe abdominal pain, hx of pancreatitis, recently binge drinking alcohol. after significant other took his kids away from him. Worsening pain, progressively over preceding 48 hours. Drinking ETOH 20 months ago 8 peer and 1 pint vodka daily. Resumed smoking at the same time. David has left with his 2 children 2 month ago. HIstory of ?Cystic fibrosis w/u for this historically but then he has had children so he was told at one point likely not. He has suspected alpha 1 antitrypsin and notes he was treated for this per ED and then could not afford it. Recurrent pneumothorax historically. Symptoms worsening over 3 days, bilateral flank pain, bilateral LQ pain rated at 9-10/10. NO history of CHF. Severe pain diffuse pain. He has had pancreatitis before. No Vomiting, no diarrhea, mild nausea. Tenderness, guarding abdomen. Temp in Er measured at 97.8, 97.9 on floor. Pulse 112 in Er and 54 on the floor. BP 182/ 128 and 164/114. RR 20. O2 98% on RA. 5 ' 11" 117 lb. CBC showed wbc 10.89, RBC 4.90, hgb 18.1, plt 221. Coags pt 10.7, inf 1.07, aptt 24.1, Chemistry showed sodium 139.8, K+ 3.61, cl 104.4, BUN 2.4, Cr 0.5. Glucose 109.8. Lactic acid 1.41. AST 74.8, alt 57.1, calcium 9.01, seth 222.4, lip 2882.1. Urine showed normal, SG 1.010. UDS showed + benzo, + cannabinoids. He has plasma ETOH <10.0. I have requested LDH. I have also requested fluids to be hung w/ LR with MVI at 5ml/kg/hour. CT Abd pelvis with contrast: Acute pancreatitis moderate in degree, no peripanacreatic fluid collections at this time. Severe fatty liver, mild wall thickening involving left side ofthe colon ?distension reactive from pancreatitis or mild colitis. Colonic diverticulosis w/o mention of diverticulitis. Nurses triage assessment reviewed. In room SCU 3 patient with mother Patricia. No known history of elevated BP. Chronic Anxiety, chronic panic attack. No history of IV drug use. He has used marijuana daily for years. Stress is up, runs [employer], he is a very anxious barney. He has been using xanax off the street, has had numerous panic attacks. Self medicates w/ benzo and ETOH. He needs a little and has not had any in 1 week. Normally uses valium/klonopin. He has not used anything in at least 2 weeks. using CBD gummies helping with anxiety. Last ETOH last night. He has never had DT historically. Pain rated at 10/10 mid abdomen. No ETOH since last night, no tobacco since this am. He needs something for sleep, needs something for pain and he feels the dilaudid 2 q 3 is not enough. I do not want to use any NSAIDS for now. He has no history of HTN. He has used THC daily to eat as he is so small. He notes no desired intake of food. Started as a teen stopped for like 10 years and then started again. Panic prominently by history. He is tolerating water okay but sprite causes his stomach to hurt more. Nurse called 16:32 and left message for pain meds. I saw patient from 17:30-18:30. Mother in room. Bp checked again during encounter 180/102. Supposed to be on creon. NO insurance at present. LDH was ordered to evaluate for [place] Criteria. Pain controlled with dilaudid 2 q 3 hours, nicotine patches were added, I added librium 25 TID PRN for ETOH withdrawl and for chronic benzo use. Fluid hydration ws continued, he was changed from obs to admit on 11/17/18. His BP were not controlled, his pain was not controlled on 11/16. He had BP 182/128, 165/114, 180/102, 182/102, 148/108, 144/107, 159/102, 160/99, 167/105, 160/106, 174/112,154/90, 147/102. I tried norvasc 5, clonidine 0.1 and started fluids at 5ml/kg/hr. On 11/17/18 I added zestoretic 20/12.5 and his BP was normal up until am of 11/18/18 with 149/86. I backed down from the 5ml/kg/hour rate to 100cc of LR +MVI 11/17/18 and that helped. Never fluid overload, never edema, never SOA. From 11/16 to 11/18 his WBC improved from 10.89 to 9.94 to 7.61. His hgb dropped from 18.1 to 16.1 to 14.8 and he did have decrease in HCT from 49.3 to 42.7 at d/c. He has MCV elevation w/o anemia. I recommended thiamine at d/ c and to consider MVI. His chemistry panel showed normal sodium 138.2 at discharge, K+ 3.51, cl 97.7. BUN increased from 2.4 at admit to 5 yesterday to 6.0 at d/c. Creatinine essentially unchanged ~0.5. Glucose was 63.1 this am fasting. He is not on insulin, not diabetic. Calcium was low at 8.12 yesterday (9 at admit) and he is on calcium orally. Bilirubin mildly elevated at 1.64. His admit AST/ALT were <2:1 ratio and they were normal yesterday and today (44.7/33.5). LDH returned 267. He has Александр score of 1 ~1% mortality from severe pancreatitis. Lipase improved from 3552 day before to 1447.3. He was consuming his breakfast as of 11/18/18. SR on Tele, Afebrile 24 hours, pulse 69-75, O2 96-98% RA. Tolerating 25-50% of liquid diet. I offered to keep one more day, switch everything to oral, consider D51/2 NS for 24 hours ( glucose of 50 and 63) and he wanted to go home to be in his comfortable bed at home. R/B/A to opiates d/w patient. Discussed outpatient. He wants to go home toay. Based on his current status, pain is 50-60% better, he is hungry, he ate most of his breakfast and felt better. Outpatient f/u with me per his request, I have set him up appt 11 am 11/23/18. He did not feel that he wanted to go back to previous PCP as he wanted someone closer. We discussed referral to GI. We will set that up for him. He wanted to d/c I felt that this was reasonable. Health maximzed through hospital stay. Needs GI as next stage. Admitted on 11/16/18 to Obs Changed to admit on 11/17/18 Discharged patient on 11/18/18 Day of D/C Exam: Vital Signs - 24 hr 11/17/18 11/17/18 11/17/18 11:00 12:00 13:00 Temperature Pulse Rate Respiratory Rate Blood Pressure 101/68 105/69 115/86 O2 Sat by Pulse Oximetry 11/17/18 11/17/18 11/17/18 14:00 18:00 21:49 Temperature 98.1 F 98.1 F 98.3 F Pulse Rate 92 H 85 70 Respiratory 21 19 18 Rate Blood Pressure 125/75 135/89 127/75 O2 Sat by Pulse 97 99 97 Oximetry 11/18/18 11/18/18 02:00 05:04 Temperature 98.2 F 98.4 F Pulse Rate 69 75 Respiratory 18 20 Rate Blood Pressure 114/67 149/86 H O2 Sat by Pulse 96 98 Oximetry Constitutional: Appearance- Now w/o acute distress, Minimal pain response, Consistent with stated age. Orientation- Oriented x 3, alert Build and Nutrition -[Underweight] General- Patient is pleasant and cooperative with the interview and exam. Numerous tattoo. Integumentary: Numerous Tattoo. ENMT: Pinna- normal without tenderness or erythema. External auditory canal Left- normal without erythema or discharge, no excessive cerumen. External auditory canal Right-normal without erythema or discharge, no excessive cerumen. TM left- [place]/pearly, normal light reflex and anatomy TM Right- [place]/ pearly, normal light reflex and anatomy Hearing Assessment-normal to conversational speech. Nose and sinus- No sinus tenderness along frontal/ maxillary region. External appearance normal and midline. Nares- bilateral quiet airflow, no discharge. Nasal mucosa- No bleeding noted and no ulcerations observed. [place], moist. Turbinates non boggy. Lips- normal color, moist without cracks/lesions Oral Cavity/Palate- hard/soft palate intact without lesions, oral mucosa pink and moist. Dentition assessed [poor] . Tongue normal midline. Oropharynx- no pharyngeal erythema, Uvula midline. No post nasal drip. No exudate. Salivary glands- Non tender to palpation CHEST/LUNG: Inspection- symmetric chest wall no pectus deformity. Normal effort , no distress, no use of accessory muscles. Palpation- nontender sternum, ribline. No abnormal pulsations. Auscultation- Breath sounds normal throughout all lung finnegan. Normal tracheal sounds, Normal bronchial sounds overlying sternum, Bronchovessicular sounds normal between scapulae posteriorly, Normal vessicular breath sounds heard throughout periphery. Lungs are clear today. Adventitious sounds- No wheezes, rales, rhonchi. CARDIOVASCULAR: Carotid artery- normal, no bruits or abnormal pulsations. Jugular vein- no pulsations. Palpation/Percussion- Normal PMI, no palpable thrill Auscultation- Regular rate and rhythm. No murmur noted in sitting, supine positions. Extremities- no digital clubbing, cyanosis, edema, increased warmth. ABDOMEN: Inspection- normal and no visible pulsations. Normal contour. Auscultation- Bowel sounds normal, no abdominal bruits. Palpation/Percussion- soft non tender today. Bowel sounds normal. Peripheral Vascular: Upper extremity Left- Normal temperature with pink nailbeds and no ulcerations. Upper extremity Right- Normal temperature with pink nailbeds and no ulcerations. Lower extremity- Normal temperature with pink nailbeds and no ulcerations. DP pulses 2+ bilaterally. Pedal hair intact. Normal capillary refill. Edema- No edema. Musculoskeletal: Generalized-No generalized swelling or edema of extremities, no digital clubbing or cyanosis, neurovascularly intact all four extremities. Neurological: General- Moves all 4 extremities symmetrically. Symmetrical face and body posture. Cranial nerves- individually evaluated II-XII and intact. PERRLA, Normal EOMI, visual/special senses appear intact, Face is symmetrical and normal sensation/movement, normal tongue, normal strength/posture of neck musculature. Neuropsych: Oriented- Person, place, time. (AAOx3), Mood/affect- Anxious. Not diaphoretic. Able to articulate well. Speech-Normal speech, normal rate, normal tone, normal use of language, volume and coherence. Thought content- normal with ability to perform basic computations and apply abstract thought/reason. Associations- intact, no SI/HI, no hallucinations, delusions, obsessions. Judgment/insight- Appropriate. Memory-Recall intact, remote and recent memory intact. Knowledge- Age appropriate fund of knowledge, concentration and attention span normal. Lymphatic: Head/Neck- normal size and non tender to palpation. Axillary- normal size and non tender to palpation. Femoral and Inguinal- normal size and non tender to palpation. Plan: 1. STOP ALCOHOL CONSUMPTION - Start thiamine. Prescription sent to [facility]. 2. Advance diet. Pancreatitis diet handout. 3. Opiate education: We discussed opiates as a form of pain medication to act as an adjunct to Tylenol, NSAIDS, steroids, topical rubs such as icyhot, bengay , biofreeze, aspercreme, cool/warm compresses, stretching/exercising etc. We discussed pain cream. Discussed to consider f/u with pain management to discuss other options. Opiates are not meant to eliminate pain but rather are designed to facilitate function and improve ADL. We discussed ADL today, discussed goals of therapy. We talked specifically about R/B/A to opiates, to overuse of opiates and dangers of using opiates even at recommended levels. There is no published guideline for UDS. This is to reduce diversion, to make sure patient is actually taking them and not using illegal drugs. Random UDS are utilized to reduce chances of cheating the system. Patient can expect minimum of 2 per year scheduled and or random and if any compliance questions are considered. He is only getting short supply for discharge from hospital. Discussed multiple rx can be given but again case by case basis. There will be no early fills, no after hours fills. We reviewed the level of pain, ADL, any adverse effects, and aberrant drug-related behaviors. We also reviewed personal and family history of substance abuse and discussed appropriate destruction of unwanted Rx. Reviewed risks of tolerance/dependence/addiction. These medications are dangerous and any abnormal behavior may limit our ability to continue these agents. - Prescription monitoring program checked. - Written Rx given 4. Benzodiazepine: Discussed these are used in limited circumstances. Discussed these are highly addictive and have potential for abuse. These work on GABA2 receptors and can cause sedation and possibly breathing difficulty. Caution with driving/machinery use until known response to medications. Discussed [place] HB1 and current trends in avoidance of benzodiazepines with opiates. Discussed certain requirements must be met to use controlled Rx. Office controlled policy discussed with patient. Random drug screens, pill counts and requirement to use same pharmacy discussed with the patient. - Prescription monitoring program checked - Written Rx given 5. Pancreatitis: Needs to follow up with me 11/23/18 11 am. NEeds to be at clinic no later than 10:45 am to complete paperwork. We will talk about referral to GI and f/u. - Handout provided. 6. Tobacco: Tobacco Cessation discussed today for 2 minutes. We reviewed lifestyle choices and discussed quitting. Ready to quit status discussed. The risks and hazards of continued tobacco abuse were discussed with the patient today and total tobacco cessation as recommended. It was clearly and unambiguously explained that continued tobacco usage will adversely affect overall morbidity and mortality of the patient. Patient was informed that tobacco use can lead to numerous cancers, worsening of cardiovascular and pulmonary systems and that lung damage is often permanent and irreversible. I advised the patient to inform me if any further assistance is requested, as we can offer counseling services, nicotine replacement inhaled, patch, lozenge, gum , or prescription medications to include Chantix or Wellbutrin for assistance. I will reassess the interest in tobacco cessation at the next and all subsequent visits. - prescription for patches sent to pharmacy. 7. Hypertension: Zestoretic blood pressure medication once daily. - CBC in 1 week - CMP in 1 week - Handout. 8. Activity As tolerated 9. Return to ER if worsening. >30 minutes spent on Discharge today. - Written rx for librium/percocet provided (copied) - SPLICING MACHINE OPERATOR checked.
== END 2018-11-18 10:30 | disposition home or self-care (01) ==
LOC: ED 10:34 → SCU 15:11
PROVIDERS: ADMIT Family Medicine; ATTEND Family Medicine
DX: R10.9 Unspecified abdominal pain (principal); M54.9 Dorsalgia, unspecified; R61 Generalized hyperhidrosis; R14.0 Abdominal distension (gaseous); K85.90 Acute pancreatitis without necrosis or infection, unspecified; E88.01 Alpha-1-antitrypsin deficiency; K76.9 Liver disease, unspecified; K70.9 Alcoholic liver disease, unspecified; R03.0 Elevated blood-pressure reading, without diagnosis of hypertension; F12.90 Cannabis use, unspecified, uncomplicated; Z87.898 Personal history of other specified conditions; D58.2 Other hemoglobinopathies; E83.51 Hypocalcemia
CPT/HCPCS: 36415; 80053; 80074; 80306; 80307; 81001; 82150; 82550; 82962; 83605; 83615; 83690; 83735; 84484; 85025; 85610; 85730; 87040; 93005; 93010; 96361; 96374; 96375; 96376; 99284

== ENCOUNTER 2018-11-20 16:48 | Inpatient (IN) ==
[2018-11-20] MEDS ORDERED: DILAUDID 1 MG/ML SYRINGE IM STA (17:24)
--- NOTE | 2018-11-20 17:54 | ED.PDOC ---
General Stated Complaint: epigastric abdominal pain Time Seen by Physician: 17:00 (was d/c from hospital for a bout of pancreatitis) Mode of Arrival: Walk-In Information Source: Patient Exam Limitations: No limitations Nursing and Triage Documentation Reviewed and Agree: Yes Does patient meet sepsis criteria?: No System Inflammatory Response Syndrome: Not Applicable <MITRA REYES - Last Filed: 11/20/18 17:51> Seen Within Last 72 Hours for Same Complaint By: In-Patient Facility ( discharged on the 18 of November for similar complaints ) <BRANDY BLOOM - Last Filed: 11/20/18 20:58> ED Provider: Dr. BRANDY BLOOM Chief Complaint: Abdominal Pain Primary Care Provider: SILVIO GONZALEZ Sepsis Protocol: For patient's 13 years and over: Temp is 96.8 and below OR 101 and greater Pulse >90 BPM Resp >20/minute Acutely Altered Mental Status Are patient's symptoms suggestive of a new infection, such as: -Pneumonia -Skin, Soft Tissue -Endocarditis -UTI -Bone, Joint Infection -Implantable Device -Acute Abdominal Infection -Wound Infection -Meningitis -Blood Stream Catheter Infection -Unknown GI Complaint Exam - Abdominal Pain Complaint/Exam Onset: Gradual Duration: pt stated since D/C HAS HAD ABDOMINAL PAIN Symptoms Are: Still present Timing: Constant Initial Severity: Moderate Current Severity: Moderate Location of Pain: Epigastric Radiates To: Denies: Chest, Back, Flank, LLQ, RLQ, Inguinal Character: Reports: Aching Aggravating: Reports: None Alleviating: Reports: None Associated Signs and Symptoms: Reports: Nausea. Denies: Diaphoresis, Fever, Cough, Chest pain, Dizziness, Back pain, Constipation, Blood in stool, Dysuria, Urinary frequency, Decreased urine output, Decreased appetite, Discharge, Vomiting, Diarrhea, Decreased activity Related History: Reports: Similar episode AAA Risk Factors: Reports: None Cardiac Risk Factors: Reports: None Testicular Torsion Risk Factors: Reports: None Surgical Obstruction Risk Factors: Reports: None Related Surgical History: Reports: None Abdominal Findings: Present: None Differential Diagnoses: Pancreatitis Quality Indicators for AMI: EKG in 10min. Quality Indicators for Cardiac Chest Pain: EKG in 10min. Quality Indicator For Non-Traumatic Chest Pain/Syncope: EKG Performed <MITRA REYES - Last Filed: 11/20/18 17:51> Review of Systems - Review Of Systems Constitutional: Reports: Malaise, Weakness Eyes: Reports: No symptoms Ears, Nose, Mouth, Throat: Reports: No symptoms Respiratory: Reports: No symptoms Cardiac: Reports: No symptoms GI: Reports: Abdominal pain, Nausea, Poor appetite, Poor fluid intake : Reports: No symptoms Musculoskeletal: Reports: No symptoms Skin: Reports: No symptoms Neurological: Reports: No symptoms Endocrine: Reports: No symptoms Hematologic/Lymphatic: Reports: No symptoms All Other Systems: Reviewed and Negative <MITRA REYES Last Filed: 11/20/18 17:51> Past Medical History - Past Medical History Previously Healthy: Yes Endocrine: Reports: None Cardiovascular: Reports: None Respiratory: Reports: Other ( CYSTIC FIBROSIS) Hematological: Reports: None Gastrointestinal: Reports: Pancreatitis Genitourinary: Reports: None Neuro/Psych: Reports: None Musculoskeletal: Reports: None Cancer: Reports: None Other Pertinent Past Medical History: CYSTIC FIBROSIS, PANCREATITIS - Surgical History General Surgical History: Reports: None, Cholecystectomy, Other (LEFT LUNG SURGERY ) - Family History Family History: Reports: None - Social History Smoking Status: Current every day smoker Hx Substance Use: No Alcohol Screening: Heavy <MITRA REYES Last Filed: 11/20/18 17:51> Physical Exam - Physical Exam Appearance: Ill-appearing Ill-appearing: Mild Pain Distress: Mild Eyes: PAULO, EOMI, Conjunctiva clear ENT: Ears normal, Nose normal, Oropharynx normal Respiratory: Airway patent, Breath sounds clear, Breath sounds equal, Respirations nonlabored Cardiovascular: RRR, Pulses normal, No rub, No murmur GI/: Tender ( EPIGASTRIC) Musculoskeletal: Normal strength, ROM intact, No edema, No calf tenderness Skin: Warm, Dry, Normal color Neurological: Sensation intact, Motor intact, Reflexes intact, Cranial nerves intact, Alert, Oriented Psychiatric: Affect appropriate, Mood appropriate <MITRA REYES - Last Filed: 11/20/18 17:51> Interpretation - Radiology Interpretation Radiology Interpretation By: Radiologist Radiology Results: No acute changes Exam Interpreted: CT Scan (resolving pancreatis. ) Radiology Interpretation By: Radiologist Radiology Results: Negative Exam Interpreted: CXR <BRANDY BLOOM - Last Filed: 11/20/18 20:58> Re-Evaluation - Re-Evaluation Time of Re-Evaluation: 20:30 Status: Improved Pain Level: 4 from 10 Appearance: NAD Additional Comments: then pain went up prior to going to get chest x ray. <BRANDY BLOOM - Last Filed: 11/20/18 20:58> Critical Care Note - Critical Care Note Total Time (mins): 0 <MITRA REYES - Last Filed: 11/20/18 17:51> - Critical Care Note Total Time (mins): 30 <BRANDY BLOOM - Last Filed: 11/20/18 20:58> Course - Course Hematology/Chemistry: 11/20/18 17:33 11/20/18 17:33 <MITRA REYES - Last Filed: 11/20/18 17:51> - Course Hematology/Chemistry: 11/20/18 17:33 11/20/18 17:33 <BRANDY BLOOM - Last Filed: 11/20/18 20:58> - Course Orders, Labs, Meds: Lab Review 11/20/18 11/20/18 17:33 17:33 WBC 7.32 RBC 4.51 L Hgb 16.7 Hct 45.5 MCV 100.9 H MCH 37.0 H MCHC 36.7 H RDW Coeff of Crhis 13.7 Plt Count 225 Immature Gran % (Auto) 0.3 Neut % (Auto) 77.1 Lymph % (Auto) 14.6 [place] % (Auto) 6.1 Eos % (Auto) 1.2 Baso % (Auto) 0.7 Immature Gran # (Auto) 0.0 Neut # (Auto) 5.6 Lymph # (Auto) 1.1 [place] # (Auto) 0.5 Eos # (Auto) 0.1 Baso # (Auto) 0.1 Sodium 136.2 Potassium 2.57 L* Chloride 90.9 L Carbon Dioxide 33.5 H Anion Gap 14.37 BUN 4.2 L Creatinine 0.49 L Estimated GFR (MDRD) 189.00 BUN/Creatinine Ratio 8.57 Glucose 108.6 H Calcium 9.49 Total Bilirubin 0.92 AST 41.3 ALT 33.7 Alkaline Phosphatase 105.1 Total Protein 7.45 Albumin 4.24 Globulin 3.21 Albumin/Globulin Ratio 1.32 Amylase 147.3 H Lipase 1709.2 H Orders Category Date Time Status ADMIT PATIENT INPATIENT .TO MEDSURG (MONITORED BED) ADMISSION 11/20/18 20: 23 Active EKG-(ED ONLY) Stat CARDIO 11/20/18 17:54 Completed GIVE HS SNACK 2100 CARE 11/20/18 20:28 Active INTAKE & OUTPUT Q8HR CARE 11/20/18 19:47 Active TELEMETRY MONITORING TELE CARE 11/20/18 20:24 Active VITAL SIGNS Q4HR CARE 11/20/18 19:49 Active CLEAR LIQUID DIET DIETARY 11/21/18 Breakfast Ordered AMYLASE Stat LAB 11/20/18 17:33 Completed CBC W/ AUTO DIFF DAILY@0600 LAB 11/21/18 06:00 Ordered CBC W/ AUTO DIFF DAILY@0600 LAB 11/22/18 06:00 Ordered CBC W/ AUTO DIFF Stat LAB 11/20/18 17:33 Completed COMPREHENSIVE METABOLIC PANEL DAILY@0600 LAB 11/21/18 06:00 Ordered COMPREHENSIVE METABOLIC PANEL DAILY@0600 LAB 11/22/18 06:00 Ordered COMPREHENSIVE METABOLIC PANEL Stat LAB 11/20/18 17:33 Completed LIPASE Stat LAB 11/20/18 17:33 Completed Enoxaparin Sodium [Lovenox] MEDS 11/21/18 09:00 Ordered 40 mg SUBCUT DAILY Hydromorphone HCl [Dilaudid 1 mg/ml Syringe] MEDS 11/20/18 17:24 Discontinued 1 mg IM ONCE STA Ondansetron HCl/Pf [Zofran 4 mg/2 ml] MEDS 11/20/18 19:47 Ordered 4 mg IVP Q6H PRN Potassium Chloride Additive [Potassium Chloride 40 Meq MEDS 11/20/18 21:00 Ordered Vial-Additive Only] 40 meq IV DAILY Potassium Chloride [K-Dur] MEDS 11/20/18 18:12 Discontinued 40 meq PO ONCE STA Potassium Chloride [Potassium Chloride Premix Run] 10 MEDS 11/20/18 18:12 Discontinued meq Premix 100 ml Water 1 bag IV ONCE Potassium Chloride [Potassium Chloride Premix Run] 100 MEDS 11/20/18 18:59 Discontinued ml IV .STK-MED Sodium Chloride 0.9% [Sodium Chloride] 1,000 ml MEDS 11/20/18 20:00 Ordered IV 150 mls/hr RESUSCITATION STATUS Routine OTHERS 11/20/18 19:47 Ordered CHEST, 2 VIEWS PA & LAT Stat RADS 11/20/18 20:[address] ABDOMEN/PELVIS WO CONTRAST Stat RADS 11/20/18 17:25 Completed Medications Generic Name Dose Route Start Last Admin Trade Name Freq PRN Reason Stop Dose Admin Chlordiazepoxide HCl 25 mg 11/20/18 21:00 Librium PO BID [facility] Enoxaparin Sodium 40 mg 11/21/18 09:00 Lovenox SUBCUT DAILY [facility] Lisinopril/HCTZ 1 tab 11/21/18 09:00 Zestoretic 20-12.5 Mg Tab PO DAILY [facility] Hydromorphone HCl 1 mg 11/20/18 20:33 Dilaudid 1 Mg/Ml Syringe IVP Q6HR PRN Severe Pain Sodium Chloride 1,000 mls @ 150 mls/hr 11/20/18 20:00 Sodium Chloride IV .Q6H40M [facility] Ondansetron HCl 4 mg 11/20/18 19:47 Zofran 4 Mg/2 Ml IVP Q6H PRN Nausea / Vomiting Potassium Chloride 40 meq 11/20/18 21:00 Potassium Chloride 40 Meq Vial-Additive Only IV DAILY [facility] Thiamine HCl 100 mg 11/21/18 09:00 Thiamine PO DAILY [facility] Discontinued Medications Generic Name Dose Route Start Last Admin Trade Name Freq PRN Reason Stop Dose Admin Hydromorphone HCl 1 mg 11/20/18 17:24 11/20/18 17:46 Dilaudid 1 Mg/Ml Syringe IM 11/20/18 17:25 1 mg ONCE STA Administration Hydromorphone HCl 1 mg 11/20/18 20:32 Dilaudid 1 Mg/Ml Syringe IVP 11/20/18 20:33 ONCE STA Potassium Chloride 10 meq/ 100 mls @ 100 mls/hr 11/20/18 18:12 11/20/18 19:13 Sterile Water IV 11/20/18 19:11 100 mls/hr ONCE STA Administration Potassium Chloride 40 meq 11/20/18 18:12 11/20/18 19:13 K-Dur PO 11/20/18 18:13 40 meq ONCE STA Administration Vital Signs: Temp Pulse Resp BP Pulse Ox 11/20/18 16:49 98.4 F 93 H 20 150/114 H 97 Departure - Departure Pt referred to PMD for follow-up: Yes IPMP verified?: No <MITRA REYES - Last Filed: 11/20/18 17:51> - Departure Time of Disposition: 20:31 <BRANDY BLOOM - Last Filed: 11/20/18 20:58> - Departure Disposition: ADMITTED INPATIENT Discharge Problem: Abdominal pain, Hypokalemia Pancreatitis, acute Qualifiers: Pancreatitis type: alcohol induced Acute pancreatitis complication: no infection or necrosis Qualified Code(s): K85.20 - Alcohol induced acute pancreatitis without necrosis or infection Condition: Good Allergies/Adverse Reactions: Allergies No Known Allergies Allergy (Verified 11/20/18 17:00) Home Medications: Ambulatory Orders Calcium Carbonate/Vitamin D3 [Calcium 500 + Vit D 200 mg Tablet] 1 each PO BID 30 Days #60 tablet 11/18/18 Chlordiazepoxide HCl [Librium] 25 mg PO BID #14 capsule 11/18/18 Lisinopril/Hydrochlorothiazide [Zestoretic 20-12.5 mg Tab] 1 tab PO DAILY 30 Days #30 tablet 11/18/18 Oxycodone-Acetaminophe 7.5-325 [Percocet 7.5-325] 0.5 - 1 tab PO TID PRN #21 tablet 11/18/18 Vitamin B-1 [Thiamine] 100 mg PO DAILY 30 Days #30 tablet 11/18/18
--- NOTE | 2018-11-20 18:01 | CT ---
EXAM: CT of the abdomen pelvis without contrast History: Abdominal pain, chronic pancreatitis. Comparison: CT abdomen pelvis 11/16/2018 Technique: Multiplanar CT images through the abdomen pelvis were obtained without the administration of IV contrast Findings: Lung bases are clear. No acute osseous abnormalities. Status post cholecystectomy. The liver is fatty. No focal liver or splenic lesions. The peripancre atic inflammation has nearly completely resolved. No fluid collections. No bowel obstruction. No f ree air. Moderate bladder distension but no bladder wall thickening. Prostate is not enlarged. Col onic diverticulosis. The appendix is not dilated or inflamed. No abdominal aortic aneurysm. No mayco al stones and no hydronephrosis. Impression: 1. The pancreatitis has nearly resolved. No peripancreatic fluid collections. 2. Hepatic steatosis. 3. Colonic diverticulosis. 4. Moderate bladder distension but no bladder wall thickening
[2018-11-20] MEDS ORDERED: K-DUR PO STA (18:12)
[2018-11-20] MEDS ORDERED: POTASSIUM CHLORIDE 10 MEQ/100 ML PREMIX 10 MEQ in PREMIX 100 ML WATER 1 BAG IV STA (18:12)
[2018-11-20] MEDS ORDERED: POTASSIUM CHLORIDE 10 MEQ/100 ML PREMIX 100 ML IV ONE (18:59)
[2018-11-20] MEDS ORDERED: DILAUDID 1 MG/ML SYRINGE IVP PRN ×2 (19:47→20:33)
[2018-11-20] MEDS ORDERED: ZOFRAN 4 MG/2 ML IVP PRN (19:47)
--- NOTE | 2018-11-20 20:42 | DI ---
EXAM: Two views of the chest. History: Chest pain. Comparison: Chest radiograph 01/15/2012 Findings: Heart size is normal. No focal consolidation. No appreciable pleural fluid and no pneumo thorax. No acute osseous abnormalities. Postsurgical changes within the left lung apex. Impression: No acute cardiopulmonary process.
[2018-11-20] MEDS: DILAUDID 1 MG/ML SYRINGE IVP STA (20:49)
[2018-11-20] MEDS ORDERED: DILAUDID 1 MG/ML SYRINGE ONE ×2 (20:49→22:07)
[2018-11-20] MEDS ORDERED: POTASSIUM CHLORIDE 40 MEQ VIAL-ADDITIVE ONLY IV SCH (21:00)
[2018-11-20] MEDS ORDERED: POTASSIUM CHLORIDE 20 MEQ VIAL- ADDITIVE ONLY IV ONE (21:50)
[2018-11-20] MEDS: LIBRIUM PO SCH (22:01)
[2018-11-20 22:47] VITALS: BMI 14.9
[2018-11-20] MEDS: SODIUM CHLORIDE 1,000 ML IV SCH (22:55)
[2018-11-20] MEDS: DILAUDID 1 MG/ML SYRINGE IVP PRN (23:20)
[2018-11-21] MEDS: DILAUDID 1 MG/ML SYRINGE IVP PRN ×6 (02:31→23:43)
[2018-11-21] MEDS: SODIUM CHLORIDE 1,000 ML IV SCH ×3 (04:55→19:42)
[2018-11-21] MEDS: DILAUDID 1 MG/ML SYRINGE IVP STA (07:05)
--- NOTE | 2018-11-21 08:57 | PCM.PROG ---
Attending Provider: ATTENDING PROVIDER: [facility] This patient is seen with Milli Herzog, Nurse Practitioner. DATE OF SERVICE: 11/21/18 SUBJECTIVE: This 38 year old WHITE/ M was hospitalized 11/20/18. The patient is still having significant abdominal pain. Blood pressure was elevated at [facility]. He had abdominal pain last night after eating jello. REVIEW OF SYSTEMS: CONSTITUTIONAL: No night sweats. No fatigue, malaise, lethargy. No fever or chills. HEENT: Eyes: No visual changes. No eye pain. No eye discharge. ENT: No runny nose. No epistaxis. No sinus pain. No odynophagia. No congestion. RESPIRATORY: No cough, no congestion. No hemoptysis. No shortness of breath. CARDIOVASCULAR: No angina symptoms. No CHF symptoms. No atypical chest pain for CAD. No palpitations. No orthopnea.. GASTROINTESTINAL: Abdominal pain. No nausea or vomiting. No diarrhea or constipation. No hematemesis. No hematochezia. GENITOURINARY: No urgency. No frequency. No dysuria. No hematuria. No obstructive symptoms. No discharge. No pain. No significant abnormal bleeding. MUSCULOSKELETAL: No musculoskeletal pain; no joint swelling. NEUROLOGICAL: Awake, alert, oriented to time, place and person. No headache. No neck pain. No syncope. No seizures. No dizziness. PSYCHIATRIC: Not anxious. No depression. No suicidal thoughts. No homicidal thoughts. SKIN: No rash. No lesions. No wounds. ENDOCRINE: No unexplained weight loss. No weight gain. HEMATOLOGIC/LYMPHATIC: No anemia. No purpura. No petechiae. No prolonged or excessive bleeding. No palpable lymph nodes. PHYSICAL EXAMINATION: GENERAL: The patient is awake, alert and oriented, lying in bed in no distress. VITAL SIGNS: Temperature 98.0 F, Pulse 84, Respiratory Rate 18, BP 140/82, Pulse Ox 98% HEENT: Head normocephalic, atraumatic. Eyes: Extraocular muscles are intact. Pupils are equal, round and reactive to light and accommodation. Ears: No lesions. Nose appeared normal. Throat: No exudate or erythema. NECK: Supple. No JVD, no carotid bruit. No lymphadenopathy or thyromegaly. LUNGS: Clear to auscultation. Percussion note normal. Chest symmetrical. HEART: S1, S2, no S3. No murmurs. No cyanosis or clubbing. No ascites. Pulses: Dorsalis pedis and posterior tibial pulses +1 to +2 both sides. ABDOMEN: Soft. Non-tender. Bowel sounds active. No CVA tenderness. No mass felt. Left upper quadrant tenderness. EXTREMITIES: No edema. Full range of motion of all extremities, equal. NEUROLOGIC: No focal deficit. Cranial nerves II through XII are grossly intact. No headache, no double vision or headache. SKIN: Not dry. Intact. Turgor-normal. LYMPHATIC: No palpable lymph nodes/no lymphedema. MUSCULOSKELETAL: Normal joints with no swelling. Muscle tone is normal. LAB REVIEW: 11/21/18 05:00 11/21/18 05:00 11/21/18 05:00: Sodium 139.8, Potassium 3.88, Chloride 101.7, Carbon Dioxide 28.0, Anion Gap 13.98, BUN 4.1 L, Creatinine 0.44 L, Estimated GFR (MDRD) 213.00 , BUN/Creatinine Ratio 9.31, Glucose 102.0, Calcium 8.75, Total Bilirubin 0.90, AST 37.7, ALT 30.6, Alkaline Phosphatase 94.6, Total Protein 7.02, Albumin 3.90 , Globulin 3.12, Albumin/Globulin Ratio 1.25 11/21/18 05:00: WBC 6.31, RBC 4.52 L, Hgb 16.4, Hct 46.5, MCV 102.9 H, MCH 36.3 H, MCHC 35.3, RDW Coeff of Chris 14.1, Plt Count 227, Immature Gran % (Auto) 0.3, Neut % (Auto) 68.6, Lymph % (Auto) 19.7, [place] % (Auto) 7.8, Eos % (Auto) 3.0, Baso % (Auto) 0.6, Immature Gran # (Auto) 0.0, Neut # (Auto) 4.3, Lymph # (Auto ) 1.2, [place] # (Auto) 0.5, Eos # (Auto) 0.2, Baso # (Auto) 0.0 11/20/18 17:33: Sodium 136.2, Potassium 2.57 L*, Chloride 90.9 L, Carbon Dioxide 33.5 H, Anion Gap 14.37, BUN 4.2 L, Creatinine 0.49 L, Estimated GFR ( MDRD) 189.00, BUN/Creatinine Ratio 8.57, Glucose 108.6 H, Calcium 9.49, Total Bilirubin 0.92, AST 41.3, ALT 33.7, Alkaline Phosphatase 105.1, Total Protein 7.45, Albumin 4.24, Globulin 3.21, Albumin/Globulin Ratio 1.32, Amylase 147.3 H , Lipase 1709.2 H 11/20/18 17:33: WBC 7.32, RBC 4.51 L, Hgb 16.7, Hct 45.5, MCV 100.9 H, MCH 37.0 H, MCHC 36.7 H, RDW Coeff of Chris 13.7, Plt Count 225, Immature Gran % (Auto) 0.3 , Neut % (Auto) 77.1, Lymph % (Auto) 14.6, [place] % (Auto) 6.1, Eos % (Auto) 1.2, Baso % (Auto) 0.7, Immature Gran # (Auto) 0.0, Neut # (Auto) 5.6, Lymph # (Auto ) 1.1, [place] # (Auto) 0.5, Eos # (Auto) 0.1, Baso # (Auto) 0.1 ASSESSMENT: Please see below. 1. Acute pancreatitis 2. Hypertension 3. Hypokalemia PLAN: 1. Decrease IV fluids to 100cc an hour 2. Potassium 20meq PO daily 3. Discontinue IV Potassium Plan and coordination of the patient's care discussed in the presence of Textile Slitting Machine Operator and nurse. SCRIBED BY: Jody HARRIS scribed while in presence of service performed by Dr. Simmons/Milli Herzog APRN on 11/21/18 ([id number])
[2018-11-21] MEDS: ZESTORETIC 20-12.5 MG TAB PO SCH (08:59)
[2018-11-21] MEDS: LOVENOX SUBCUT SCH (09:00)
[2018-11-21] MEDS: K-DUR PO SCH (09:00)
[2018-11-21] MEDS: THIAMINE PO SCH (09:00)
[2018-11-21] MEDS: LIBRIUM PO SCH ×2 (09:00→20:51)
[2018-11-21] MEDS: ZESTRIL PO SCH (12:47)
[2018-11-21] MEDS: CREON DR 12,000 UNITS CAPSULE PO SCH ×3 (12:47→20:51)
[2018-11-22] MEDS: DILAUDID 1 MG/ML SYRINGE IVP PRN ×3 (03:24→14:20)
[2018-11-22] MEDS: SODIUM CHLORIDE 1,000 ML IV SCH ×2 (05:16→15:32)
[2018-11-22] MEDS: ZESTORETIC 20-12.5 MG TAB PO SCH (09:01)
[2018-11-22] MEDS: K-DUR PO SCH (09:01)
[2018-11-22] MEDS: LIBRIUM PO SCH ×2 (09:01→20:46)
[2018-11-22] MEDS: THIAMINE PO SCH (09:01)
[2018-11-22] MEDS: ZESTRIL PO SCH (09:01)
[2018-11-22] MEDS: CREON DR 12,000 UNITS CAPSULE PO SCH ×4 (09:02→20:46)
[2018-11-22] MEDS: LOVENOX SUBCUT SCH (09:02)
[2018-11-23] MEDS: DILAUDID 1 MG/ML SYRINGE IVP PRN ×2 (01:17→07:23)
[2018-11-23] MEDS: SODIUM CHLORIDE 1,000 ML IV SCH (01:20)
[2018-11-23 07:16] VITALS: BP 153/98; TEMP 98.2
[2018-11-23] MEDS ORDERED: NORVASC PO STA (08:17)
[2018-11-23] MEDS: THIAMINE PO SCH (08:43)
[2018-11-23] MEDS: LIBRIUM PO SCH (08:43)
[2018-11-23] MEDS: LOVENOX SUBCUT SCH (08:44)
[2018-11-23] MEDS: K-DUR PO SCH (08:44)
[2018-11-23] MEDS: CREON DR 12,000 UNITS CAPSULE PO SCH (08:44)
[2018-11-23] MEDS ORDERED: ZESTRIL PO SCH ×2 (09:00)
--- NOTE | 2018-11-23 09:43 | CM.DICTOOL ---
ADMISSION: 11/20/18 20:26 DISCHARGE: 11/23/18 DATE OF SERVICE: 11/23/18 FINAL DIAGNOSIS PANCREATITIS, ACUTE HYPERTENSION HYPOKALEMIA, RESOLVED DIVERTICULOSIS GERD DEPRESSION/ANXIETY SPONTANEOUS PNEUMOTHORAX, X5 RECURRENT PANCREATITIS HX PANCREATIC INSUFFICIENCY HX ALCOHOL ABUSE SMOKER NONCOMPLIANCE WITH LIFESTYLE, DIET, MEDS, FOLLOWUP CHOLECYSTECTOMY LAST VITALS Temp Pulse Resp BP Pulse Ox 98.2 F 89 20 153/98 H 99 11/23/18 07:15 11/23/18 07:15 11/23/18 07:15 11/23/18 07:15 11/23/18 07:15 TAKE THESE MEDICATIONS AT HOME Amlodipine Besylate (Norvasc) 5 mg PO BEDTIME [facility] Chlordiazepoxide HCl (Librium) 25 mg PO BID [facility] Last Admin: 11/22/18 20:46 Dose: 25 mg Lisinopril (Zestril) 40 mg PO DAILY [facility] Pancrelipase (Creon Dr 12,000 Units Capsule) 1 cap PO QID [facility] Last Admin: 11/22/18 20:46 Dose: 1 cap Thiamine HCl (Thiamine) 100 mg PO DAILY [facility] Last Admin: 11/22/18 09:01 Dose: 100 mg Calcium 500mg PO DAILY Potassium 20meq PO DAILY x7 days ALLERGIES No Known Allergies Allergy (Verified 11/20/18 17:00) DISCONTINUED MEDICATIONS Lisinopril/HCTZ (Zestoretic 20-12.5 Mg Tab) 1 tab PO DAILY [facility] NEW PRESCRIPTIONS: NORVASC 5MG PO DAILY AT BEDTIME LISINOPRIL 40MG PO DAILY IN MORNING CREON 12,000UNITS PO QID POTASSIUM 20MEQ PO QDAY X7 DAYS SMOKING: SMOKER COUNSELLED ON SMOKING CESSATION DISEASE SPECIFIC EDUCATION: PANCREATITIS SMOKING CESSATION ABSTAINING FROM ALCOHOL LOW FAT DIET SMALL FREQUENT MEALS FOLLOW-UP APPOINTMENT MEDICATIONS LAB REVIEW: 11/23/18 07:33 11/23/18 07:33 11/23/18 07:33: Sodium 137.9, Potassium 3.47 L, Chloride 103.2, Carbon Dioxide 24.3, Anion Gap 13.87, BUN 8.4 L, Creatinine 0.42 L, Estimated GFR (MDRD) 225.00 , BUN/Creatinine Ratio 20.00, Glucose 99.1, Calcium 8.59, Total Bilirubin 0.95, AST 39.7, ALT 28.5, Alkaline Phosphatase 81.1, Total Protein 6.52, Albumin 3.73 , Globulin 2.79, Albumin/Globulin Ratio 1.33 11/23/18 07:33: WBC 5.59, RBC 4.18 L, Hgb 15.4, Hct 42.7, MCV 102.2 H, MCH 36.8 H, MCHC 36.1 H, RDW Coeff of Chris 13.2, Plt Count 208, Immature Gran % (Auto) 0.4 , Neut % (Auto) 70.6, Lymph % (Auto) 18.2, [place] % (Auto) 7.2, Eos % (Auto) 2.5, Baso % (Auto) 1.1, Immature Gran # (Auto) 0.0, Neut # (Auto) 4.0, Lymph # (Auto ) 1.0, [place] # (Auto) 0.4, Eos # (Auto) 0.1, Baso # (Auto) 0.1 11/23/18 05:00: Amylase 89.4, Lipase 904.6 H PLAN: DISCHARGE HOME TODAY, 11/23/18 DIET: LOW FAT DIET SMALL FREQUENT PORTIONS (6X/DAY) ACTIVITY: INDEPENDENT WITH ADL'S FOLLOW-UP APPOINTMENT: DR. GASTON [facility] TUESDAY DECEMBER 04, 2018 @ 2:00PM CODE STATUS: FULL CODE ECHOCARDIOGRAM TODAY, PRIOR TO DISCHARGE. MR. ORTIZ IS ALERT AND ORIENTED X3, HE IS AGREEABLE WITH PLAN TO DISCHARGE HOME TODAY. WE DISCUSSED THE IMPORTANCE OF SMOKING CESSATION AND ABSTAINING FROM ALCOHOL. WE DISCUSSED COMPLIANCE WITH MEDICATIONS TO CONTROL PANCREATITIS AND RELATED PAIN TO FURTHER ASSIST WITH CONTROLLING BLOOD PRESSURE. WILL PRESCRIBE LISINOPRIL 40MG PO QAM, NORVASC 5MG QHS, AND CREON 12,000UNITS QID. DISCUSSED DIET TO ASSIST WITH CONTROLLING PANCREATITIS - TO OBSERVE LOW FAT DIET AND SMALL PORTIONS 6 TIMES PER DAY. PT VERBALIZED UNDERSTANDING AND AGREES TO THIS PLAN. PT STATES HE HAS FOLLOW-UPS SCHEDULED WITH [facility], SILVIO AND DR. GASTON. PT STATES DR. GASTON HAS AGREED TO ACCEPT HIM A PATIENT AND PLANS TO FOLLOW-UP WITH HIM TO MANAGE CHRONIC CONDITIONS. PLANS TO CANCEL FOLLOW-UP WITH SILVIO SHE IS NOT COMFORTABLE PRESCRIBING HIS CREON. BREATH SOUNDS CLEAR , ABDOMINAL PAIN IS IMPROVING, NO TENDERNESS NOTED THIS AM. LAST BM WAS THIS MORNING 11/23/18. NO N/V/D. PT'S APPETITE HAS RETURNED AND HE IS EATING SMALL MEALS WITHOUT DIFFICULTY. HYDRATION STATUS GOOD, SKIN INTACT. FRANKIE Saira COLIN, WINDOW INSTALLATION SUBCONTRACTOR
[2018-11-23] MEDS ORDERED: NORVASC PO SCH (21:00)
--- NOTE | 2018-11-24 08:58 | ECHO2D ---
Date of Exam: 11/23/18 Ordering Physician: DR. FRANKIE SIMMONS--HOSPITALIST Room #: [id number] Reason for Echo: HTN M-Mode Normal Adult Results LV Dimensions Normal Adult Results AoV Opening excursions >1.6 >1.6 LVEDD-base- 3.5-5.8 4.2 Ao root dimensions 2.0-3.7 3.3 LVESD-base- 3.1-4.6 L. Atrium dimensions 1.9-3.8 2.6 Post. Wall thickness 0.8-1.1 1.0 IV septum (thickness) 0.7-1.2 1.1 Post. Wall excursion 0.72-1.3 NORMAL Septal motion NORMAL Systolic motion R. Ventricular cavity 1.5-2.0 NORMAL LVEF 60% 60% Paradoxical septal wall motion NORMAL 2-D : 2-D M Mode Echocardiogram was performed using apical four chamber and left parasternal long and short axis views. MITRAL VALVE PROLAPSE NOTED. Tricuspid and aortic valves appear to be normal. Contractility of the left ventricle seems to be normal, so is the cavity size. Left atrial cavity size and aortic root appear to be normal. There is no pericardial effusion. There is no thrombus noted in the left ventricular or left aortic cavity. No mitral valve prolapse noted. M-MODE: MV: MITRAL VALVE PROLAPSE AV: NORMAL TV: NORMAL PV: CHAMBER SIZE: NORMAL WALL MOTION: NORMAL PERICARDIUM: NORMAL INTERPRETATION: 1. MITRAL VALVE PROLAPSE LATE SYSTOLIC 2. NORMAL LEFT VENTRICULAR CONTRACTILITY COPY TO SILVIO GONZALEZ NP AND DR. [facility]AST[facility]
--- NOTE | 2018-12-01 11:30 | DS ---
DATE OF SERVICE: 11/23/18 FINAL DIAGNOSIS: PANCREATITIS, ACUTE HYPERTENSION HYPOKALEMIA, RESOLVED DIVERTICULOSIS GERD DEPRESSION/ANXIETY SPONTANEOUS PNEUMOTHORAX, X5 RECURRENT PANCREATITIS HX PANCREATIC INSUFFICIENCY HX ALCOHOL ABUSE SMOKER NONCOMPLIANCE WITH LIFESTYLE, DIET, MEDS, FOLLOWUP CHOLECYSTECTOMY LAST VITALS: Temp Pulse Resp BP Pulse Ox 98.2 F 89 20 153/98 H 99 11/23/18 07:15 11/23/18 07:15 11/23/18 07:15 11/23/18 07:15 11/23/18 07:15 DISCHARGE INSTRUCTIONS: DISCHARGE HOME TODAY, 11/23/18. FOLLOW-UP APPOINTMENT:DR. GASTON; [facility], TUESDAY DECEMBER 04, 2018 @ 2:00PM. CODE STATUS: FULL CODE. ECHOCARDIOGRAM TODAY, PRIOR TO DISCHARGE. TAKE THESE MEDICATIONS AT HOME: Amlodipine Besylate (Norvasc) 5 mg PO BEDTIME [facility] Chlordiazepoxide HCl (Librium) 25 mg PO BID [facility] Lisinopril (Zestril) 40 mg PO DAILY [facility] Pancrelipase (Creon Dr 12,000 Units Capsule) 1 cap PO QID [facility] Thiamine HCl (Thiamine) 100 mg PO DAILY [facility] Calcium 500mg PO DAILY Potassium 20meq PO DAILY x7 days ALLERGIES: No Known Allergies Allergy (Verified 11/20/18 17:00) DISCONTINUED MEDICATIONS: Lisinopril/HCTZ (Zestoretic 20-12.5 Mg Tab) 1 tab PO DAILY [facility] NEW PRESCRIPTIONS: NORVASC 5MG PO DAILY AT BEDTIME LISINOPRIL 40MG PO DAILY IN MORNING CREON 12,000UNITS PO QID POTASSIUM 20MEQ PO QDAY X7 DAYS SMOKING: SMOKER COUNSELLED ON SMOKING CESSATION DISEASE SPECIFIC EDUCATION: PANCREATITIS SMOKING CESSATION ABSTAINING FROM ALCOHOL LOW FAT DIET SMALL FREQUENT MEALS FOLLOW-UP APPOINTMENT MEDICATIONS DIET: LOW FAT DIET SMALL FREQUENT PORTIONS (6X/DAY) ACTIVITY: INDEPENDENT WITH [facility] COURSE: This is a white male who was admitted through the hospitalist service. He was recently hospitalized under Dr. Gaston last week with acute pancreatitis.He came back to the emergency room complaining that he was still having some abdominal pain. He had gone to Darlene Guy his primary care at [facility]. His blood pressure was elevated around 170/90 and she instructed him to go to the emergency room for further treatment of his hypertension. Blood pressure on admission was 160/90, amylase and lipase were about the same as they were upon discharge last week. He was admitted and made NPO. He was placed on normal saline at 120cc an hour. Potassium was low at 2.9 on admission. He was given 40meq in his fluids. Started on Lisinopril 20-12.5mg daily. He has a history of recurrent pancreatitis with a history of alcohol abuse and substance abuse. He normally takes Creon for pancreatic insufficiency. He states that he has been without this for several weeks. He thinks that his blood pressure is elevated in response to his pain. This is new for him. He is a smoker. He was admitted and started on Lisinopril. Blood pressure continued to be elevated. We increased Lisinopril to 40mg daily and put on him Norvasc 5mg at night. We restarted his Creon to take QID. Pancreatic enzymes has slowly trended down. Potassium was 3.1 the day after admission. We started him on 40meq twice a day. We are going to send him home on 20 meq daily. This is likely due to diarrhea. Dr. Petersen did an echo today prior to discharge. He does have a history of noncompliance with followup and medications. We have instructed him to followup with Darlene Guy. He also states that he is going to see Dr. Gaston who saw him in the hospital last week. Overall his pain is better. Blood pressure has been controlled. We will send him home on Lisinopril 40mg daily along with Norvasc 5mg at bedtime. We have instructed him to stop smoking. Diet and nutrition have been discussed regarding small nonfatty meals. Instructed to eliminate alcohol. He has refused any treatment for any alcohol abuse. We will discharge him in stable condition. He is to followup with his PCP. TIME SPENT: More than 60 minutes. [facility] CENTERBridger
--- NOTE | 2018-12-26 12:51 | PN ---
DATE OF SERVICE: 11/22/18 SUBJECTIVE: The patient is feeling better. He is still having mild pain. Appetite seems to be improving. The amylase and lipase are lower than 11/20/18. PHYSICAL EXAMINATION: V/S: Temperature 98. HEENT: Head normocephalic, atraumatic. Eyes: Extraocular muscles are intact. Pupils are equal, round and reactive to light and accommodation. Ears: No lesions. Nose appeared normal. Throat: No exudate or erythema. NECK: Supple. No JVD, no carotid bruit. No lymphadenopathy or thyromegaly. LUNGS: Clear to auscultation. Percussion note normal. Chest symmetrical. HEART: S1, S2, no S3. No murmurs. No cyanosis or clubbing. No ascites. Pulses: Dorsalis pedis and posterior tibial pulses +1 to +2 bilaterally. ABDOMEN: Questionable tenderness in the epigastric area. Soft. Bowel sounds active. No CVA tenderness. No mass felt. EXTREMITIES: No edema. Full range of motion of all extremities, equal. NEUROLOGIC: No focal deficit. Cranial nerves II through XII are grossly intact. No headache, no double vision or headache. SKIN: Not dry. Intact. Turgor - normal. LYMPHATIC: No palpable lymph nodes/no lymphedema. MUSCULOSKELETAL: Normal joints with no swelling. Muscle tone is normal. The patient says that he doesn't abuse hard drugs. Once in awhile he had taken weeks before took alcohol and got upset about his taking his son. He started drinking and that started the whole pancreatitis problem that he had even before. The patient is intelligent, seems to be reliable. Strongly advised to quit drinking and followup with Darlene Guy. The patient says he already has an appointment with her and also Dr. Ash. TIME SPENT: More than 30 minutes. Plan and coordination of the patient's care discussed in the presence of nurse. MARTÍN
--- NOTE | 2018-12-26 13:20 | PN ---
DATE OF SERVICE: 11/23/18 SUBJECTIVE: 38-year-old white male hospitalized with acute pancreatitis type symptoms. The patient's amylase now is back to normal with lipase being the lowest 1000, still elevated but that usually lags behind most symptoms. Yesterday he felt very hungry and had somehow spaghetti which he tolerated well. The patient says he has realized the quantity of food for him should be less, multiple small meals. I explained to him that is exactly true with low fat multiple meals. The patient this morning is up and about. PHYSICAL EXAMINATION: VITAL SIGNS: Temperature 98, pulse 90, respiratory rate 15, blood pressure 160/ 90, pulse ox 99%. HEENT: Head normocephalic, atraumatic. Eyes: Extraocular muscles are intact. Pupils are equal, round and reactive to light and accommodation. Ears: No lesions. Nose appeared normal. Throat: No exudate or erythema. NECK: Supple. No JVD, no carotid bruit. No lymphadenopathy or thyromegaly. LUNGS: Decreased breath sounds. Clear to auscultation. Percussion note normal. Chest symmetrical. HEART: S1, S2, no S3. No murmurs. No cyanosis or clubbing. No ascites. Pulses: Dorsalis pedis and posterior tibial pulses +1 to +2 bilaterally. ABDOMEN: Soft. Nontender. Bowel sounds active. No CVA tenderness. No mass felt. EXTREMITIES: No edema. Full range of motion of all extremities, equal. NEUROLOGIC: No focal deficit. Cranial nerves II through XII are grossly intact. No headache, no double vision or headache. SKIN: Not dry. Intact. Turgor - normal. LYMPHATIC: No palpable lymph nodes/no lymphedema. MUSCULOSKELETAL: Normal joints with no swelling. Muscle tone is normal. ASSESSMENT: 1. ACUTE PANCREATITIS, RESOLVING. THE PATIENT HAD BOUT OF ACUTE PANCREATITIS SEVERAL DAYS AGO, NOW IS IN CHRONIC PHASE. 2. HISTORY OF ALCOHOL ABUSE. 3. HYPERTENSION. PLAN: 1. Increase the Lisinopril to 40 mg. 2. Discontinue Lisiopril/Hydrochlorothiazde. 3. Norvasc at night. 4. Strongly advised to take the medications regularly. 5. DASH diet, low salt diet discussed with the patient. 6. Will do echo before the patient is discharged to evaluate LV function. 7. The patient has chronic lung disease. 8. History of pneumothorax. 9. Strongly advised to quit smoking. 10. The patient is strongly advised to followup with Darlene Guy as scheduled next week. 11. Also to followup with Dr. Keith Ash. 12. If abdominal pain reoccurs, he is to go to the emergency room. CONDITION: Stable. TIME SPENT: More than 30 minutes. Plan and coordination of the patient's care discussed in the presence of nurse. MARTÍN
--- NOTE | 2018-12-26 13:22 | PN ---
BILLING 11/20/18 ADMISSION DAY LEVEL 5 11/21/18 INTERMEDIATE 11/22/18 INTERMEDIATE 11/23/18 DISCHARGE MTDD
--- NOTE | 2019-02-15 10:52 | HP ---
DATE OF SERVICE: 11/20/18 HISTORY OF PRESENT ILLNESS: This is a 38-year-old white male who presented to the emergency room with acute epigastric and abdominal pain. He was recently hospitalized about one week ago with acute pancreatitis under Dr. Ash as a hospitalist. PAST MEDICAL HISTORY: Recurrent pancreatitis Hypertension History of hypokalemia Diverticulosis GERD Depression/anxiety History of spontaneous pneumothorax History of pancreatic insufficiency History of alcohol abuse Smoker Long history of noncompliance with lifestyle, diet, medications and followup PAST SURGICAL HISTORY: Status post cholecystectomy REVIEW OF SYSTEMS: CONSTITUTIONAL: Positive for weakness. No night sweats. No fatigue, malaise, lethargy. No fever or chills. HEENT: Eyes: No visual changes. No eye pain. No eye discharge. ENT: No runny nose. No epistaxis. No sinus pain. No sore throat. No odynophagia. No ear pain. No congestion. RESPIRATORY: No cough, no congestion. No hemoptysis. No shortness of breath. CARDIOVASCULAR: No angina symptoms. No CHF symptoms. No atypical chest pain for CAD. No palpitations. No PND. No orthopnea. GASTROINTESTINAL: Positive for nausea, acute abdominal pain. No vomiting. No diarrhea or constipation. No hematemesis. No hematochezia. GENITOURINARY: No urgency. No frequency. No dysuria. No hematuria. No obstructive symptoms. No discharge. No pain. No significant abnormal bleeding. MUSCULOSKELETAL: No musculoskeletal pain. No joint swelling. No arthritis. NEUROLOGICAL: No headache. No neck pain. No syncope. No seizures. No dizziness. PSYCHIATRIC: Not anxious. No depression. No suicidal thoughts. No homicidal thoughts. SKIN: No rash. No lesions. No wounds. ENDOCRINE: No unexplained weight loss. No weight gain. HEMATOLOGIC/LYMPHATIC: No anemia. No purpura. No petechiae. No prolonged or excessive bleeding. No palpable lymph nodes. PERSONAL/FAMILY/SOCIAL HISTORY: He is not . He is a current everyday smoker. He admits to being a heavy drinker. MEDICATIONS: (HOME) Librium 25 mg p.o. b.i.d. Lisinopril/Hydrochlorothiazide one tab p.o. daily Vitamin B1 100 mg p.o. daily Calcium Carbonate/Vitamin D3 one each p.o. b.i.d. 30 days Oxycodone-Acetaminophen 7.5-325 0.5-one tab p.o. t.i.d. p.r.n. Lipase/Protease/Amylase 12,000 units p.o. q.i.d. ALLERGIES: NKDA PHYSICAL EXAMINATION: VITAL SIGNS: Temperature 98.4, heart rate 93, respirations 20, blood pressure 150/114, pulse ox 97%. HEENT: Head normocephalic, atraumatic. Eyes: Extraocular muscles are intact. Pupils are equal, round and reactive to light and accommodation. Ears: No lesions. Nose appeared normal. Throat: No exudate or erythema. NECK: Supple. No JVD, no carotid bruit. No lymphadenopathy or thyromegaly. LUNGS: Diminished breath sounds bilaterally. Clear to auscultation. Percussion note normal. Chest symmetrical. HEART: S1, S2, no S3. No murmurs. No cyanosis or clubbing. No ascites. Pulses: Dorsalis pedis and posterior tibial pulses +1 to +2 bilaterally. ABDOMEN: Acute left upper and lower quadrant tenderness, epigastric tenderness. Soft. Nontender. Bowel sounds active. No mass felt. EXTREMITIES: No edema. Full range of motion of all extremities, equal. NEUROLOGIC: No focal deficit. Cranial nerves II through XII are grossly intact. No headache, no double vision or headache. SKIN: Not dry. Intact. Turgor - normal. LYMPHATIC: No palpable lymph nodes/no lymphedema. MUSCULOSKELETAL: Normal joints with no swelling. Muscle tone is normal. LABS: White count 7.32, hemoglobin 16.7, hematocrit 45.5, platelets 225. Sodium 136, potassium 2.5, BUN 4.2, creatinine 0.49, glucose 108, carbon dioxide level 33.5 , AST 41, ALT 33, amylase 147, lipase 1,709. ASSESSMENT: 1. ACUTE PANCREATITIS, WHICH IS RECURRENT. 2. HYPERTENSION. 3. SEVERE HYPOKALEMIA. 4. HISTORY OF ALCOHOL ABUSE. 5. RECURRENT PANCREATITIS. 6. NONCOMPLIANCE. PLAN: 1. We will admit. 2. No cardiac markers. 3. Start on NS at 100 cc/hr IV. 4. The patient is to be NPO. 5. CT of the abdomen and pelvis. 6. Amylase and lipase daily. 7. CBC, CMP daily. 8. Librium 10 mg t.i.d. 9. Thiamine 100 mg p.o. daily. 10. Resume home medications. 11. Nicotine patch if needed. 12. Chest x-ray. 13. Will follow closely. TIME SPENT: More than 70 minutes. MTDD
== END 2018-11-23 13:10 | disposition home or self-care (01) | DRG 440 ==
LOC: ED 16:48 → MEDSURG A 20:26
PROVIDERS: ADMIT Internal Medicine; ATTEND Internal Medicine
DX: Z91.19 Patient's noncompliance with other medical treatment and regimen; F41.8 Other specified anxiety disorders; I10 Essential (primary) hypertension; Z72.0 Tobacco use; R53.1 Weakness; R63.0 Anorexia; R11.0 Nausea; K57.90 Diverticulosis of intestine, part unspecified, without perforation or abscess without bleeding; K85.20 Alcohol induced acute pancreatitis without necrosis or infection; E87.6 Hypokalemia; K21.9 Gastro-esophageal reflux disease without esophagitis; R53.81 Other malaise